=== PATIENT | male | born 1990 | race Caucasian/White ===

== ENCOUNTER 2017-11-23 01:35 | Observation (INO) ==
[2017-11-23] MEDS ORDERED: levETIRAcetam 1,000 MG in 0.9 % Sodium Chloride 100 ML IVPB ONE (01:58)
--- NOTE | 2017-11-23 02:02 | Emergency Department Note ---
Disposition Clinical Impression: Seizure, Cocaine use, Amphetamine abuse Disposition: Admitted As Inpatient Condition: Fair Time of Disposition: 04:04 Seizure HPI - General Chief Complaint: ED Seizure Stated Complaint: seizure Time Seen by Provider: 11/23/17 01:49 Source: EMS Mode of arrival: EMS Limitations: altered mental status Nursing Notes Reviewed: Yes Vital Signs Reviewed: Yes - History of Present Illness HPI Narrative: 27-year-old male patient for evaluation following a seizure. History provided via EMS. EMS states that the mother noted a seizure and called. EMS reports the patient did have a 10 second seizure. Patient was not immediately postictal but was sleepy. Patient does have evidence of a fall possibly related to a seizure earlier. Patient does not provide a clear history. EMS report the patient does have a Suboxone history is not taking it for the past 2 days. Patient denies having a seizure history. Patient reports mid abdominal pain but denies pain elsewhere. No stress breath no fevers. No chest pain. Patient denies alcohol or drugs. - Related Data Home Medications Medication Instructions Recorded Confirmed Buprenorphine HCl/Naloxone HCl 1 each SL BID 11/23/17 11/23/17 [Suboxone 8 mg-2 mg Sl Film] Gabapentin [Neurontin] 800 mg PO TID 11/23/17 11/23/17 Allergies Allergy/AdvReac Type Severity Reaction Status Date / Time ketorolac [From Toradol] Allergy Rash Verified 11/23/17 04:31 All systems ED: reviewed and negative except as stated. Constitutional: Reports: as per HPI. Denies: fever Eyes: Reports: as per HPI ENT ED: Reports: as per HPI Cardiovascular: Reports: as per HPI. Denies: chest pain Respiratory: Reports: as per HPI. Denies: cough, dyspnea Gastrointestinal: Reports: as per HPI, abdominal pain. Denies: nausea, vomiting Genitourinary: Reports: as per HPI Musculoskeletal: Reports: as per HPI Integumentary: Reports: as per HPI Neurological: Reports: as per HPI Psychiatric: Reports: as per HPI Endocrine: Reports: as per HPI Hematological/Lymphatic: Reports: as per HPI Allergic/Immunologic: Reports: as per HPI Past Medical History - Past Medical History Medical history: Reports: no medical history Surgical history: Reports: other Psychiatric history: Reports: anxiety - Social History Smoking Status: Current every day smoker Smokeless Tobacco Status: No Alcohol use: Reports: none Drug use: Reports: other Physical Exam - General Limitations: altered mental status General appearance: alert, in no apparent distress - Head Head exam: atraumatic, normocephalic, normal inspection - Eye Eye exam: Present: normal appearance, PERRL, EOMI, other (Periorbital ecchymosis ) - ENT ENT exam: normal exam, normal oropharynx, mucous membranes moist - Expanded ENT Exam Mouth exam: Present: laceration (Lateral tongue laceration.) - Neck Neck exam: Present: normal inspection, trachea midline - Chest Chest inspection: Present: normal inspection, symmetric chest wall rise - Respiratory Respiratory exam: Present: normal lung sounds bilaterally. Absent: respiratory distress - Cardiovascular Cardiovascular exam: Present: regular rate, normal rhythm - Abdominal Exam Abdominal exam: Present: soft, Non-Tender - Male exam: Present: other (No urinary incontinence) - Extremities Exam Extremities exam: Present: normal inspection. Absent: pedal edema - Back Exam Back exam: Present: normal inspection. Absent: tenderness - Neurological Exam Neurological exam: Present: alert, oriented X3, CN II-XII intact - Psychiatric Psychiatric exam: Present: normal affect, normal mood - Skin Skin exam: Present: warm, dry, intact, normal color Course Course Narrative: Patient seen and examined. Patient will get basic lab work including CBC and lipase. Patient also I's. Patient will get an EKG and head CT. Patient also get a urine drug screen. Seizure precautions in place. Patient does have evidence of seizure with lateral tongue biting as well as evidence of head trauma. Patient will be loaded with Keppra. - Reevaluation(s) Reevaluation #1: Patient continues to be resting. The patient's mother is now bedside. Confirms a history of the patient had been feeling well for the past couple days. The patient had initial seizure early this morning late last night where he fell. Mother did not directly witness a seizure. Mother witnessed a seizure following that event lasted approximately 2 minutes with generalized convulsions. Patient did have some confusion following that episode. EMS also noted is seizure on arrival and lasting approximately 10 seconds. No history of seizures in the past. Time: 03:32 Reevaluation #2: Patient continues to be sleeping. Time: 04:04 Vital Signs Temperature 97 F L 11/23/17 01:40 Pulse Rate 75 11/23/17 01:40 Respiratory Rate 16 11/23/17 01:40 Blood Pressure 104/70 11/23/17 01:40 O2 Sat by Pulse Oximetry 92 11/23/17 01:40 Temperature 98.1 F 11/23/17 05:20 Pulse Rate 61 11/23/17 05:20 Respiratory Rate 18 11/23/17 05:20 Blood Pressure 103/61 11/23/17 05:20 O2 Sat by Pulse Oximetry 95 11/23/17 05:20 Oxygen Delivery Oxygen Delivery Nasal Cannula Seizure - MDM Narrative Medical decision making narrative: 19-year-old male presents for evaluation following seizure-like activity. Patient had initial seizure witnessed by family. Not able to accurately describe the seizure at that time. Mother did notice subsequent seizure [place] proximally 2 minutes there is generalized convulsions. With some post ictal confusion. No history of seizures in the past. Patient does have a history of Suboxone use and has not been taking Suboxone for the past 2 days. Mother denies history of drug use however the patient's urine drug screen does show amphetamines as well as cocaine use. Patient has subsequent seizure witnessed by EMS last proximally 10 seconds. No abortives or given any of the seizure activity. Patient had basic lab work including a head CT and chest x-ray. Basic labs show leukocytosis likely stress-induced following a seizure. Patient does have lateral tongue biting system with a seizure. Patient did not have any urinary incontinence. Etiology of the seizure is unknown at this point however substance abuse and withdrawal highly suspected. Patient is alert but not back to his baseline. Patient was loaded with Keppra. Given the fact that the patient had recurrent seizures in a 24-hour period the patient would benefit from inpatient admission observation to ensure that he returns to his normal mental status. Low suspicion for [employer] meningitis or encephalitis. Patient exhibits no meningeal signs or symptoms. - Lab Data Lab results reviewed: Yes I reviewed the patient's lab results. Result diagrams: 11/23/17 01:43 11/23/17 01:43 Lab Results 11/23/17 11/23/17 11/23/17 Range/Units 01:43 01:43 01:43 WBC 22.2 H (4.3-11.1) K/mcL RBC 5.28 (4.19-5.50) M/mcL Hgb 15.3 (12.9-16.9) g/dL Hct 43.8 (37.5-50.1) % MCV 83.0 (83.0-100.0) fL MCH 29.0 (28.0-33.3) pg MCHC 34.9 (31.6-35.5) g/dL RDW 12.2 (11.5-14.5) % Plt Count 371 (140-400) K/mcL MPV 10.3 (9.4-12.4) fL Immature Gran % 0.6 (0-4) % Seg Neutrophils % 89.6 % Lymphocytes % 4.8 % Monocytes % 4.7 % Eosinophils % 0.1 % Basophils % 0.2 % Neutrophils # 19.9 H (1.6-8.9) K/mcL Lymphocytes # 1.1 (0.6-4.6) K/mcL Monocytes # 1.0 (0.0-1.3) K/mcL Eosinophils # 0.0 (0.0-0.6) K/mcL Basophils # 0.1 (0.0-0.2) K/mcL Sodium 138 (136-145) mEq/L Potassium 3.5 (3.5-5.1) mEq/L Chloride 101 (98-107) mEq/L Carbon Dioxide 21 L (23-29) mEq/L BUN 12 (6-20) mg/dL Creatinine 1.15 (0.70-1.30) mg/dL Est GFR ( Amer) > 60 (> 60) Est GFR (Non-Af Amer) > 60 (> 60) BUN/Creatinine Ratio 10 (6-26) Glucose 149 H (70-105) mg/dL Calculated Osmolality 289 (280-300) Calcium 9.8 (8.6-10.3) mg/dL Total Bilirubin 0.4 (0.3-1.0) mg/dL AST 21 (13-39) Units/L ALT 31 (7-52) Units/L Alkaline Phosphatase 130 H (34-104) Units/L Serum Total Protein 6.7 (6.4-8.9) g/dL Albumin 4.4 (3.5-5.7) g/dL Globulin 2.3 L (2.4-3.5) g/dL Albumin/Globulin Ratio 1.9 (1.1-2.2) Lipase 6 L (11-82) Units/L Urine Color (Yellow) Urine Clarity (Clear) Urine pH (5.0-8.0) pH Units Ur Specific [place] (1.010-1.025) Urine Protein (Neg-Trace) mg/dL Urine Glucose (UA) (Normal) mg/dL Urine Ketones (Negative) mg/dL Urine Blood (Negative) Urine Nitrite (Negative) Urine Bilirubin (Negative) Urine Urobilinogen (Normal) mg/dL Ur Leukocyte Esterase (Negative) Urine Opiates Screen (Hgrqwi=584) ng/mL Ur Barbiturates Screen (Drshcn=071) ng/mL Ur Phencyclidine Scrn (Cutoff=25) ng/mL Ur Amphetamines Screen (Yzjavj=8700) ng/mL U Benzodiazepines Scrn (Opdeig=099) ng/mL Urine Cocaine Screen (Cutoff= 300) ng/mL U Marijuana (THC) Screen (Cutoff = 50) ng/mL Ethyl Alcohol < 10 (0-10) mg/dL 11/23/17 11/23/17 Range/Units 02:53 02:54 WBC (4.3-11.1) K/mcL RBC (4.19-5.50) M/mcL Hgb (12.9-16.9) g/dL Hct (37.5-50.1) % MCV (83.0-100.0) fL MCH (28.0-33.3) pg MCHC (31.6-35.5) g/dL RDW (11.5-14.5) % Plt Count (140-400) K/mcL MPV (9.4-12.4) fL Immature Gran % (0-4) % Seg Neutrophils % % Lymphocytes % % Monocytes % % Eosinophils % % Basophils % % Neutrophils # (1.6-8.9) K/mcL Lymphocytes # (0.6-4.6) K/mcL Monocytes # (0.0-1.3) K/mcL Eosinophils # (0.0-0.6) K/mcL Basophils # (0.0-0.2) K/mcL Sodium (136-145) mEq/L Potassium (3.5-5.1) mEq/L Chloride (98-107) mEq/L Carbon Dioxide (23-29) mEq/L BUN (6-20) mg/dL Creatinine (0.70-1.30) mg/dL Est GFR ( Amer) (> 60) Est GFR (Non-Af Amer) (> 60) BUN/Creatinine Ratio (6-26) Glucose (70-105) mg/dL Calculated Osmolality (280-300) Calcium (8.6-10.3) mg/dL Total Bilirubin (0.3-1.0) mg/dL AST (13-39) Units/L ALT (7-52) Units/L Alkaline Phosphatase (34-104) Units/L Serum Total Protein (6.4-8.9) g/dL Albumin (3.5-5.7) g/dL Globulin (2.4-3.5) g/dL Albumin/Globulin Ratio (1.1-2.2) Lipase (11-82) Units/L Urine Color Yellow (Yellow) Urine Clarity Clear (Clear) Urine pH 5.0 (5.0-8.0) pH Units Ur Specific [place] 1.023 (1.010-1.025) Urine Protein Negative (Neg-Trace) mg/dL Urine Glucose (UA) Normal (Normal) mg/dL Urine Ketones Negative (Negative) mg/dL Urine Blood Negative (Negative) Urine Nitrite Negative (Negative) Urine Bilirubin Negative (Negative) Urine Urobilinogen Normal (Normal) mg/dL Ur Leukocyte Esterase Negative (Negative) Urine Opiates Screen Negative (Qmmihg=488) ng/mL Ur Barbiturates Screen Negative (Enapez=874) ng/mL Ur Phencyclidine Scrn Negative (Cutoff=25) ng/mL Ur Amphetamines Screen Positive H (Teluww=0381) ng/mL U Benzodiazepines Scrn Negative (Tzouoo=393) ng/mL Urine Cocaine Screen Positive H (Cutoff= 300) ng/mL U Marijuana (THC) Screen Negative (Cutoff = 50) ng/mL Ethyl Alcohol (0-10) mg/dL - Radiology Data Radiology results reviewed: Yes I reviewed the patient's radiology results. Head CT 11/23/17 02:00 IMPRESSION: No acute intracranial abnormality. D/ / Ed Talavera MD / Ed Talavera MD Interpreting Provider: Ed Talavera MD Chest X-Ray 11/23/17 03:34 IMPRESSION: Mild patchy bibasilar airspace disease may represent atelectasis or pneumonia, possibly from aspiration. Clinical correlation is recommended. D/ / Chavez Scott MD / Chavez Scott MD Interpreting Provider: Chavez Scott MD - EKG Data EKG attestation: Yes I reviewed and interpreted this EKG. EKG shows normal: sinus rhythm Rate: normal Rhythm: NSR [place]/QRS: normal T wave inversions noted in: aVR Interpretation: no acute changes S.B.A.R. - S.B.A.Nilson Situation: Demographics Background: Presenting Complaint Assessment: Vital Signs, Course and respsone to treatment, Patient/Family Expectation Recommendation: Barrier(s) to disposition, Recommendation based on pending studies, treatments, or consults S.B.A.RRocío Report Given to: Dr. Alena Urbina Repor Time: 04:35 Attestation Statement - Attestation Attestation: I, Cody Mckoy MD, personally evaluated this patient and discussed their management with the resident physician. I reviewed the resident's note and agree with the documented findings, medical decision making, and plan of care. 27-year-old male presents to the emergency department after having seizure activity at home this evening. No prior history of seizures. Mother reports that he was in bed and she heard him fall out of bed and found him in the floor with jerking all over. He hit his head when he fell and has some right periorbital ecchymosis. She states he woke up and she abdomen back up into the bed and then he had another seizure which lasted a few minutes. She called EMS. EMS reports that the patient had a third episode of seizure activity after they had loaded him into the ambulance. On arrival here the patient is postictal. No urinary incontinence. His only complaint is abdominal pain. Mother reports that he did vomit at home before the seizure. On examination patient is a well-developed well-nourished male. Patient is postictal and was very drowsy and responds to verbal stimuli but is nonverbal on arrival. There is no cyanosis or diaphoresis. He has some right periorbital ecchymosis and ecchymosis and mild swelling to the bridge of the nose. Neck is supple with no apparent tenderness and no meningismus. Chest is nontender to palpation. Breath sounds clear and equal bilaterally. Heart regular and tachycardic. Abdomen is soft with normal bowel sounds and no apparent tenderness on palpation. No guarding or rebound tenderness. No tympany or distention. Patient moving all 4 extremities. Labs reviewed. Head CT shows no acute intracranial abnormality. Chest x-ray shows mild patchy bibasilar airspace disease may represent atelectasis or pneumonia, possibly from aspiration. The hospitalist, Dr. Carvajal, was consulted and accepted admission of the patient.
[2017-11-23 02:06] LABS: Basophils # 0.1 K/mcL (0.0-0.2); Basophils % 0.2 %; Eosinophils % 0.1 %; Hematocrit 43.8 % (37.5-50.1); Hemoglobin 15.3 g/dL (12.9-16.9); Immature Granulocytes % 0.6 % (0-4); Lymphocytes # 1.1 K/mcL (0.6-4.6); Lymphocytes % 4.8 %; Mean Corpuscular HGB Conc 34.9 g/dL (31.6-35.5); Mean Platelet Volume 10.3 fL (9.4-12.4); Monocytes % 4.7 %; Neutrophils # 19.9 K/mcL (1.6-8.9); Platelet Count 371 K/mcL (140-400); Red Blood Count 5.28 M/mcL (4.19-5.50); Red Cell Distribution Width 12.2 % (11.5-14.5); Segmented Neutrophils % 89.6 %
[2017-11-23 02:15] LABS: Alanine Aminotransferase 31 Units/L (7-52); Albumin 4.4 g/dL (3.5-5.7); Albumin/Globulin Ratio 1.9 (1.1-2.2); Alkaline Phosphatase 130 Units/L (34-104); Aspartate Amino Transferase 21 Units/L (13-39); BUN/Creatinine Ratio 10 (6-26); Bilirubin,Total 0.4 mg/dL (0.3-1.0); Blood Urea Nitrogen 12 mg/dL (6-20); Calcium 9.8 mg/dL (8.6-10.3); Carbon Dioxide 21 mEq/L (23-29); Chloride 101 mEq/L (98-107); Globulin 2.3 g/dL (2.4-3.5); Glucose 149 mg/dL (70-105); Lipase 6 Units/L (11-82); Osmolality,Calculated 289 (280-300); Potassium 3.5 mEq/L (3.5-5.1); Sodium 138 mEq/L (136-145); Total Protein 6.7 g/dL (6.4-8.9); eGFR For African Americans > 60 (> 60); eGFR For Non-African Americans > 60 (> 60)
[2017-11-23 03:09] LABS: Bilirubin,Urine Negative (Negative); Blood,Urine Negative (Negative); Clarity,Urine Clear (Clear); Color,Urine Yellow (Yellow); Glucose,Urine (UA) Normal (Normal); Ketones,Urine Negative (Negative); Leukocyte Esterase,Urine Negative (Negative); Nitrite,Urine Negative (Negative); Protein,Urine Negative (Neg-Trace); Specific Gravity,Urine 1.023 (1.010-1.025); Urobilinogen,Urine Normal (Normal)
[2017-11-23 03:16] LABS: Amphetamine Screen,Urine Positive ng/mL (Cutoff=1000); Barbiturate Screen,Urine Negative ng/mL (Cutoff=200); Benzodiazepines Screen,Urine Negative ng/mL (Cutoff=200); Cannabinoid Screen,Urine Negative ng/mL (Cutoff = 50); Cocaine Screen,Urine Positive ng/mL (Cutoff= 300); Opiate Screen,Urine Negative ng/mL (Cutoff=300); Phencyclidine Screen,Urine Negative ng/mL (Cutoff=25)
[2017-11-23] MEDS ORDERED: Naloxone 0.4 MG/ML INJ IVP PRN (08:32)
[2017-11-23] MEDS ORDERED: Acetaminophen 325 MG TABLET PO PRN (08:32)
[2017-11-23] MEDS ORDERED: Ondansetron 4 MG/2 ML VIAL IVP PRN (08:32)
[2017-11-23] MEDS ORDERED: 0.9 % Sodium Chloride w KCl 20 MEQ/1,000 ML MLS IVC SCH (08:45)
--- NOTE | 2017-11-23 09:38 | Internal Med History&Physical ---
Date of Encounter: 11/23/17 Time of Encounter: 07:50 Assessment and Plan (1) Seizure Current visit: Yes Status: Acute 1. I suspect this is a withdrawal seizure from Suboxone withdrawal (missed 4 doses). 2. Will resume Suboxone per home dosing -- [facility] reprot verifies last Rx fill was 11/15/17 for 14 doses (7 days). 3. Continue Neurontin. 4. Will hold off further anti-epileptics unless advised by Neurology. 5. Will order EEG. 6. Consult neurology for further guidance -- discussed with Dr. Bell. 7. Do not suspect meningitis clinically and do not feel LP is warranted at this time. 8. Seizure precautions. (2) Atelectasis of both lungs Current visit: Yes Status: Acute 1. I do not suspect pneumonia. 2. Will repeat CXR tomorrow and repeat CBC. If patient develops symptoms and/ or fever, will treat for possible aspiration pneumonia. However, clinically, he does not have pneumonia and/or symptoms presently. (3) Opiate addiction Current visit: Yes Status: Chronic 1. Resume home dose of Suboxone as prescribed. Qualifiers: Substance use status: in withdrawal Qualified Code(s): F11.23 - Opioid dependence with withdrawal (4) DVT prophylaxis Current visit: Yes Status: Acute 1. Heparin SQ. Internal Medicine - H&P: HPI Chief complaint: seizure Admitted From: Emergency Dept Plans for Post Hospital Care: Home History of present illness: Mr. Morrell is a 27 year old male who presents to the ER today with complaints of seizure as witnessed by his mother. Patient was brought in by EMS who witnessed patient having a 10 second seizure. EMS also reported that the patient's mother witnessed a seizure, thus prompting the call to EMS. Workup in the ER was pertinent for positive urine drug screen for cocaine and amphetamines. He had a negative CT of the head and was loaded with Keppra prior to being admitted to hospitalist service. Upon my assessment of the patient, he is somnolent but easily arousable. He is able to recite most of his past history. He does not recall having a seizure. There are no family members present in the ER. Regarding his past history, he confirms that he takes Suboxone for prior history of opiate drug abuse. He confirms that he ran out of his medication 2 days ago and has been without it for 4 doses now. I questioned him about his urine drug screen, and he denies any recent use of cocaine or amphetamines. However, he did confirm that he has used cocaine in recent months. He denies any chest pain, fevers, shortness of breath, headache, neck pain, back pain, vomiting, diarrhea, chills, or night sweats. He has never had seizures before, and I highly suspect he had a withdrawal seizure from his missed Suboxone doses. I did perform an [facility] report on his prior prescriptions and note that he last filled an Rx for Suboxone on 11/15/17 for 14 doses (7 days). Past Med Surg Social Fam HX - Past Medical History Attestation: Yes The following information was validated with the patient. Source: patient, old records reviewed Medical history: other (Opiate abuse -- currently on Suboxone treatment) Psychiatric history: anxiety - Past Surgical History Surgical History: no surgical history, other - Social History Smoking Status: Current every day smoker Smokeless Tobacco Status: No Alcohol use: none Drug use: cocaine, opiates, methamphetamine, other (currently prescribed Suboxone) Current living situation: Home, With Family Activity Level: Independent ambulation Recent Out of Country Travel Within the Last 8 Weeks: No - Family History Mother Living Status: Still Living Hx Family Neurologic Disorders: No Father Living Status: Still Living Hx Family Neurologic Disorders: No Internal Medicine - H&P: Meds Buprenorphine HCl/Naloxone HCl [Suboxone 8 mg-2 mg Sl Film] 1 each SL BID [History] Gabapentin [Neurontin] 800 mg PO TID 11/23/17 [History] hydrOXYzine pamoate [HydrOXYzine Pamoate] 25 mg PO TID 11/23/17 [History] 3 Allergy/AdvReac Type Severity Reaction Status Date / Time ketorolac [From Toradol] Allergy Rash Verified 11/23/17 04:31 - Constitutional Constitutional: no chills, no fever(s), no night sweats, no weakness, no weight gain, no weight loss - EENT Eyes: no blurry vision, no change in vision Ears: no ear pain, no tinnitus Nose, mouth and throat: no nasal congestion, no post-nasal drip, no sinus pain, no sinus pressure, no sore throat - Cardiovascular Cardiovascular ROS IM: syncope (seizure), no chest pain, no diaphoresis, no dyspnea, no dyspnea on exertion, no edema, no lightheadedness, no palpitations, no paroxysmal nocturnal dyspnea - Respiratory Respiratory: no cough, no dyspnea, no hemoptysis, no dyspnea on exertion, no wheezing, no chest congestion, no excessive phlegm production, no change in phlegm color - Gastrointestinal Gastrointestinal: no abdominal pain, no diarrhea, no hematemesis, no hematochezia, no melena, no nausea, no vomiting - Genitourinary Genitourinary ROS male: no dysuria, no flank pain, no hematuria - Musculoskeletal Musculoskeletal ROS IM: no arthralgias, no atrophy, no back pain - Integumentary Integumentary IM: no rash, no jaundice - Neurological Neurological ROS: convulsions, no dizziness, no focal weakness, no frequent falls, no headache(s), no numbness, no paresthesias, no weakness - Psychiatric Psychiatric: no anxiety, no confusion - Endocrine Endocrine IM: no polydipsia, no polyuria - Hematologic/Lymphatic Hematologic/Lymphatic: no easy bruising, no lymphadenopathy - Allergic/Immunologic Allergic/Immunologic: no wheezing, no GI upset with certain foods - Constitutional Vitals: Temp Pulse Resp BP Pulse Ox 98.1 F 61 18 103/61 95 11/23/17 05:20 11/23/17 05:20 11/23/17 05:20 11/23/17 05:20 11/23/17 05:20 General appearance: Present: cooperative, A&O X 3, pleasant, no acute distress, answers questions appropriately Exam: somnolent but easily arousable and answers questions appropriately and cooperatively - Head Head exam: Present: normocephalic. Absent: atraumatic, normal inspection - Expanded Head Exam Head exam expanded: Present: contusion (right forehead/jann-orbital area). Absent: abrasion, general tenderness - Eye Eye exam: Present: EOMI, normal appearance, PERRL. Absent: scleral icterus Pupils: Present: normal accommodation - ENT ENT exam: Present: mucous membranes dry, normal exam Additional comments: poor dentition -- especially upper teeth - Neck Neck exam general surgery: Present: full ROM, supple. Absent: lymphadenopathy, tenderness, nuchal rigidity, thyromegaly - Respiratory Respiratory exam: Present: CTAB. Absent: chest wall tenderness, rales, respiratory distress, rhonchi, wheezes - Cardiovascular Cardiovascular exam: Present: RRR, +S1, +S2. Absent: diastolic murmur, systolic murmur - GI/Abdominal GI/Abdominal exam: Present: normal bowel sounds, soft. Absent: guarding, hepatomegaly, rebound, splenomegaly, tenderness - Extremities Exam Extremities exam: Present: normal capillary refill, warm, radial pulses palpable and symmetrical. Absent: calf tenderness, cyanotic, full ROM, joint swelling, tenderness - Back Exam Back exam: Absent: CVA tenderness (L), CVA tenderness (R), paraspinal tenderness - Neurological Exam Neurological exam: Present: alert, CN II-XII intact, oriented X3, no focal deficits, strengths equal and symetr throughout Additional comments: no spinal tenderness; no nuchal rigidity; negative Kernig sign; negative Brudzinski sign - Psychiatric Psychiatric exam: Present: normal affect, normal mood - Skin Skin exam: Present: dry, warm. Absent: rash Internal Med - H&P Results - Labs CBC & Chem 7: 11/23/17 01:43 11/23/17 01:43 - Diagnostic Studies Chest x-ray Status: image reviewed by me (negative in my opinion; radiology read as atelecasis versus possible aspiration)
[2017-11-23] MEDS: Gabapentin 400 MG CAPSULE PO SCH ×2 (12:38→14:18)
--- NOTE | 2017-11-23 15:15 | Neurology - Consult Note ---
<Genna Philip - Last Filed: 11/23/17 15:53> Date of Encounter: 11/23/17 Time of Encounter: 15:12 Assessment and Plan (1) Seizure Current Visit: Yes Status: Acute seizure activity witnessed by his mother and EMS patient currently on suboxone, and ran out of his medication and missed four doses. but when he was asked about this he was confused. head CT: no acute abnormality UDS positive for amphetamines and cocaine Plan: EEG pending continue suboxone and neurontin per home dosing seizure precautions likely withdrawl seizure, so do not need any anti-epileptics. History of Present Illness Chief complaint: seizure HPI: Mr. Morrell is a 27 year old male with PMHx of opiate abuse (on suboxone), restless leg syndrome (on gabapentin), anxiety. Patient arrived to ED today by EMS with chief complaint of seizure activity witnessed by his mother. There was also seizure activity that was witnessed by EMS. The seizures lasted about 10 seconds. Patient was supposedly on suboxone and ran out of his medication 2 days ago and missed four doses. However, when he was asked about this, he was confused and stated that he doesn't think he ran out. patient denies nausea, vomiting, diarrhea, fever, chills, chest pain, shortness of breath. he is somnolent and tired but denies any further complaints today. Past Med Surg Social Fam HX - Past Medical History Medical history: other (Opiate abuse -- currently on Suboxone treatment) Psychiatric history: anxiety - Past Surgical History Surgical History: no surgical history, other - Social History Smoking Status: Current every day smoker Smokeless Tobacco Status: No Alcohol use: none Drug use: cocaine, opiates, methamphetamine, other (currently prescribed Suboxone) - Family History Mother Living Status: Still Living Hx Family Neurologic Disorders: No Father Living Status: Still Living Hx Family Neurologic Disorders: No Medications and Allergies Buprenorphine HCl/Naloxone HCl [Suboxone 8 mg-2 mg Sl Film] 1 each SL BID [History] Gabapentin [Neurontin] 800 mg PO TID 11/23/17 [History] hydrOXYzine pamoate [HydrOXYzine Pamoate] 25 mg PO TID 11/23/17 [History] 3 Allergy/AdvReac Type Severity Reaction Status Date / Time ketorolac [From Toradol] Allergy Rash Verified 11/23/17 04:31 All Systems: A 10-system review of systems was performed and is negative for pertinent findings except as documented above in the HPI. - Constitutional Constitutional ROS IM: as per HPI Physical Examination - Vital Signs Vital Signs: Initial Vital Signs Temp Pulse Resp BP Pulse Ox 97 F L 75 16 104/70 92 11/23/17 01:40 11/23/17 01:40 11/23/17 01:40 11/23/17 01:40 11/23/17 01:40 - Constitutional General appearance: comfortable - Neurologic Sensorimotor examination: intact Detailed motor examination: grossly full strength in all extremities Motor examination - right side: 5/5: deltoids, biceps, wrist flexion, wrist extension, city assessor, quadriceps Motor examination - left side: 5/5: deltoids, biceps, wrist flexion, wrist extension, hip flexors, tibialis Anterior Detailed sensory examination: intact Reflexes: Brachioradialis: 2+, Patella: 2+, Achilles: 2+ Mental Status Examination: awake, alert, oriented to person, oriented to place, oriented to time, follows commands appropriately, no aphasia, lethargic Cranial nerve examination: PERRL, visual bryan intact Results - Laboratory Findings CBC and BMP: 11/23/17 01:43 11/23/17 01:43 Abnormal lab findings: Abnormal lab results WBC 22.2 K/mcL (4.3-11.1) H 11/23/17 01:43 Neutrophils # 19.9 K/mcL (1.6-8.9) H 11/23/17 01:43 Carbon Dioxide 21 mEq/L (23-29) L 11/23/17 01:43 Glucose 149 mg/dL (70-105) H 11/23/17 01:43 POC Glucose 109 (58-89) H 11/23/17 12:01 Alkaline Phosphatase 130 Units/L (34-104) H 11/23/17 01:43 Globulin 2.3 g/dL (2.4-3.5) L 11/23/17 01:43 Lipase 6 Units/L (11-82) L 11/23/17 01:43 Ur Amphetamines Screen Positive ng/mL (Qvroir=2636) H 11/23/17 02:54 Urine Cocaine Screen Positive ng/mL (Cutoff= 300) H 11/23/17 02:54 Consult Discharge Plan - Plan Referrals: NONE,PCP [Primary Care Provider] - <Guera Montiel I - Last Filed: 11/23/17 16:24> Date of Encounter: 11/23/17 Assessment and Plan (1) Seizure Current Visit: Yes Status: Acute Patient seen and examined agreed with the resident history and documentation. No focal deficit on neurological examination imaging studies has been negative urine tox was positive agent was on Suboxone for years had this spell with the concern of seizure in current context with positive drug screening as well as being on Suboxone possible patient could have seizure due to interaction/ withdrawal effect from any of those illicit drugs Would not recommending starting him on any new's anti-seizure medication unless there is any Abnormality on EEG. Patient should remain on seizure precautions he is also on gabapentin which is another antiepileptic medication suggested to continue on it GUERA MONTIEL MD History of Present Illness HPI: Mr. Morrell is a 27 year old male All Systems: A 10-system review of systems was performed and is negative for pertinent findings except as documented above in the HPI. Physical Examination - Vital Signs Vital Signs: Initial Vital Signs Temp Pulse Resp BP Pulse Ox 97 F L 75 16 104/70 92 11/23/17 01:40 11/23/17 01:40 11/23/17 01:40 11/23/17 01:40 11/23/17 01:40 Results - Laboratory Findings CBC and BMP: 11/23/17 01:43 11/23/17 01:43 Abnormal lab findings: Abnormal lab results WBC 22.2 K/mcL (4.3-11.1) H 11/23/17 01:43 Neutrophils # 19.9 K/mcL (1.6-8.9) H 11/23/17 01:43 Carbon Dioxide 21 mEq/L (23-29) L 11/23/17 01:43 Glucose 149 mg/dL (70-105) H 11/23/17 01:43 POC Glucose 109 (58-89) H 11/23/17 12:01 Alkaline Phosphatase 130 Units/L (34-104) H 11/23/17 01:43 Globulin 2.3 g/dL (2.4-3.5) L 11/23/17 01:43 Lipase 6 Units/L (11-82) L 11/23/17 01:43 Ur Amphetamines Screen Positive ng/mL (Thhhae=5194) H 11/23/17 02:54 Urine Cocaine Screen Positive ng/mL (Cutoff= 300) H 11/23/17 02:54
[2017-11-23 15:37] VITALS: BP 116/70
--- NOTE | 2017-11-23 16:47 | EEG/EMG/Oth Biometrics Report ---
EEG Procedure Report Date of procedure: 11/23/17 EEG Procedure: Routine EEG Procedure Note: Patient with new onset seizure also on Suboxone and multiple illicit drug use positive urine toxicity screening Description: This is a multichannel digital EEG recording using the international 10-20 placement system. The resting record is fairly well organized and symmetric. A dominant posterior rhythm is seen. It consists of a 8 hertz 20-70 microvolt alpha rhythm. This attenuates with eye opening. During drowsiness, there is mild attenuation and slowing of the background rhythm. Stage II sleep was not achieved. Hyperventilation was not performed. Photic stimulation did not significantly alter the background rhythm. There was noted the presence of a rhythmic sharp discharge in the frontocentral region. This was preceded by some poorly-formed sharpish discharges. This episode lasted for about 2to 3 seconds. Postepisode, there was some attenuation but not much slowing. No clinical seizure activity was noted by the medical delivery technician. IMPRESSION: This is an abnormal EEG recording because of the presence of rhythmic epileptiform discharges. could be the source of patient seizures Clinical correlation is suggested. If indicated, repeat EEG and/or 24-hour ambulatory EEG monitoring might be useful in the future.
--- NOTE | 2017-11-23 16:49 | Event Note ---
Date of Encounter: 11/23/17 Time of Encounter: 16:49 Patient who was admitted with seizure type of activity EEG shows, potential for seizure activity with spike and wave without any continuous seizure activity Recommend seizure medication, we will start him on Keppra 500 mg IV twice a day Patient should remain on seizure precautions
[2017-11-23] MEDS ORDERED: *HR* Heparin 5,000 UNIT/ML VIAL SQ SCH (18:00)
[2017-11-23] MEDS ORDERED: (Buprenorphine Hcl/Naloxone Hcl [Suboxone 8 Mg-2 Mg SL SL SCH (18:00)
--- NOTE | 2017-11-23 18:21 | Event Note ---
Date of Encounter: 11/23/17 Time of Encounter: 18:20 Called by RN stating patient was signing out AMA (against medical advice). He left the hospital and signed out before I could come talk to him.
--- NOTE | 2017-11-24 18:44 | Electrocardiograph Report ---
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
== END 2017-11-23 18:16 | disposition left against medical advice (07) ==
LOC: EMEROO 01:35 → 3BNU 01:35
PROVIDERS: ADMIT Internal Medicine; ATTEND Internal Medicine

== ENCOUNTER 2018-09-14 10:06 | Observation (INO) ==
[2018-09-14] MEDS ORDERED: 0.9 % Sodium Chloride 1,000 ML IVC ONE (10:22)
--- NOTE | 2018-09-14 10:35 | Emergency Department Note ---
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 Description of Episode: loss of consciousness, tonic-clonic movement, other (fell off porch when had seizure) -: second(s), minutes(s) Witnessed: yes - by bystander Associated trauma secondary to event: Yes Seizure History: none Place: home Possible Precipitating Event: drug use Associated symptoms: Denies: chest pain, confusion, cough, diaphoresis, fever/chills, loss of appetite, malaise, rash, shortness of breath, syncope, weakness Pain Severity: mild Pain Description: burning Treatments prior to arrival: none - Related Data Home Medications Medication Instructions Recorded Confirmed RX: Gabapentin [Neurontin] 800 mg PO QID 11/23/17 09/14/18 RX: Methadone Oral Concentrate 110 mg PO DAILY 09/14/18 [Methadone] Previous Rx's Medication Instructions Recorded Amoxicillin/Clavulanate [Augmentin] 875 mg PO BIDWM 5 Days #10 tablet 09/17/18 RX: Nicotine Patch [Nicoderm] 21 mg TD DAILY 30 Days #30 09/17/18 patch.[email or web address] Allergies Allergy/AdvReac Type Severity Reaction Status Date / Time ketorolac [From Toradol] Allergy Rash Verified 09/17/18 14:47 All systems ED: reviewed and negative except as stated. Review of Systems: As Per HPI Constitutional: Denies: fever, chills, weakness Eyes: Denies: eye pain, eye discharge, vision change ENT ED: Denies: throat pain, hearing loss, epistaxis, dysphagia Cardiovascular: Denies: chest pain, palpitations, dyspnea on exertion, orthopnea Respiratory: Denies: cough, dyspnea, wheezes Gastrointestinal: Denies: abdominal pain, nausea, vomiting, diarrhea Genitourinary: Denies: dysuria, hematuria Musculoskeletal: Denies: back pain, neck pain, joint swelling, arthralgia, myalgia Integumentary: Reports: as per HPI, abrasion Neurological: Denies: headache, weakness, numbness, paresthesias, confusion, vertigo Endocrine: Reports: fatigue Hematological/Lymphatic: Denies: easy bleeding, easy bruising Past Medical History - Past Medical History Attestation: Yes The following information was validated with the patient. Source: patient Medical history: Reports: no medical history Surgical history: Reports: no surgical history, other Psychiatric history: Reports: anxiety - Social History Smoking Status: Current every day smoker Smokeless Tobacco Status: No Alcohol use: Reports: none Drug use: Reports: cocaine, opiates, methamphetamine, other Physical Exam - General Limitations: no limitations General appearance: alert, in no apparent distress, appears intoxicated - Head Head exam: normocephalic - Expanded Head Exam Head exam physicial: Present: abrasion, contusion. Absent: raccoon eyes, Singer's sign, tenderness of temporal artery, CSF rhinorrhea, CSF otorrhea 1 - superficial abrasions, No FB, no active bleeding. No crepitus or bony deformity. 2 - superficial abrasions without active bleeding or FB. - Eye Eye exam: Present: PERRL, EOMI, miosis. Absent: scleral icterus, conjunctival injection, periorbital swelling, periorbital tenderness - ENT ENT exam: mucous membranes dry - Neck Neck exam: Present: full ROM, trachea midline, other (superficial abrasion left side). Absent: tenderness, meningismus - Expanded Neck Exam Neck exam focused ED: Present: paraspinal tenderness. Absent: midline tenderness, tenderness (other), tracheal deviation, anterior neck swelling, thyroid enlargement, JVD - Chest Chest inspection: Present: normal inspection - Respiratory Respiratory exam: Present: normal lung sounds bilaterally. Absent: respiratory distress - Cardiovascular Cardiovascular exam: Present: regular rate, normal rhythm - Extremities Exam Extremities exam: Present: tenderness, normal capillary refill. Absent: calf tenderness - Expanded Lower Extremity Exam Hip/Pelvis exam: Present: full ROM Knee exam: Present: full ROM Ankle exam: Present: full ROM. Absent: tenderness Foot/toe exam: Present: full ROM, tenderness, swelling, erythema. Absent: deformity, crepitus 1 - ulceration 2 - erythema, tenderness, edema Neurovascular/Tendon exam: Present: normal capillary refill, normal fine/light touch. Absent: pulse deficit, motor deficit, sensory deficit, tendon deficit, extremity cold to touch, pallor, foot drop, significant pain with passive ROM of distal joint Gait: observed and normal - Back Exam Back exam: Present: normal inspection - Neurological Exam Neurological exam: Present: alert, oriented X3, CN II-XII intact, normal gait - Psychiatric Psychiatric exam: Present: normal affect, normal mood - Skin Skin exam: Present: warm, dry, intact, normal color, erythema (left forearm 4cm indurated area - volar side. Right dorsal foot - cellulitis with an ulceration) Course Course Narrative: Patient with Hx of IVDA, also on Methadone from a detox center, presents by squad for eval of injuries from a fall. A neighbor told the patient's mom that the patient appeared to have a seizure and then fell off of the porch. Patient states that he is not sure what caused him to fall off of the porch. He injected heroine last night and took methadone this AM. He has a significant cellulitis on dorsal aspect of right foot and an ulcer from injecting drugs recently. Labs, meds, CT's and xray ordered. Patient's head CT, face CT and neck CT read by radiologist as no acute abnormality. No signs of osteo on foot xray. ABX started. Patient admitted. Vital Signs Temperature 98.7 F 09/14/18 10:23 Pulse Rate 88 09/14/18 10:23 Respiratory Rate 16 09/14/18 10:23 Blood Pressure 125/67 09/14/18 10:23 O2 Sat by Pulse Oximetry 94 09/14/18 10:23 Temperature 98.4 F 09/17/18 06:55 Pulse Rate 88 09/17/18 06:55 Respiratory Rate 14 09/17/18 06:55 Blood Pressure 147/72 09/17/18 06:55 O2 Sat by Pulse Oximetry 97 09/17/18 06:55 Oxygen Delivery Oxygen Delivery Room Air Seizure - Medical Records Medical records reviewed: Yes I reviewed the patient's medical records. - Lab Data Lab results reviewed: Yes I reviewed the patient's lab results. Lab results narrative: Laboratory Last Values WBC 9.9 K/mcL (4.3-11.1) 09/15/18 03:18 RBC 4.42 M/mcL (4.19-5.50) 09/15/18 03:18 Hgb 12.6 g/dL (12.9-16.9) L 09/15/18 03:18 Hct 38.0 % (37.5-50.1) 09/15/18 03:18 MCV 86.0 fL (83.0-100.0) 09/15/18 03:18 MCH 28.5 pg (28.0-33.3) 09/15/18 03:18 MCHC 33.2 g/dL (31.6-35.5) 09/15/18 03:18 RDW 12.6 % (11.5-14.5) 09/15/18 03:18 Plt Count 295 K/mcL (140-400) 09/15/18 03:18 MPV 10.4 fL (9.4-12.4) 09/15/18 03:18 Immature Gran % 0.4 % (0-4) 09/15/18 03:18 Seg Neutrophils % 72.8 % 09/15/18 03:18 Lymphocytes % 16.4 % 09/15/18 03:18 Monocytes % 7.7 % 09/15/18 03:18 Eosinophils % 2.4 % 09/15/18 03:18 Basophils % 0.3 % 09/15/18 03:18 Neutrophils # 7.2 K/mcL (1.6-8.9) 09/15/18 03:18 Lymphocytes # 1.6 K/mcL (0.6-4.6) 09/15/18 03:18 Monocytes # 0.8 K/mcL (0.0-1.3) 09/15/18 03:18 Eosinophils # 0.2 K/mcL (0.0-0.6) 09/15/18 03:18 Basophils # 0.0 K/mcL (0.0-0.2) 09/15/18 03:18 ESR 53 mm/hr (0-10) H 09/14/18 10:35 Sodium 140 mEq/L (136-145) 09/15/18 03:18 Potassium 3.6 mEq/L (3.5-5.1) 09/15/18 03:18 Chloride 108 mEq/L (98-107) H 09/15/18 03:18 Carbon Dioxide 26 mEq/L (23-29) 09/15/18 03:18 BUN 5 mg/dL (6-20) L 09/15/18 03:18 Creatinine 0.66 mg/dL (0.70-1.30) L 09/15/18 03:18 Est GFR ( Amer) > 60 (> 60) 09/15/18 03:18 Est GFR (Non-Af Amer) > 60 (> 60) 09/15/18 03:18 BUN/Creatinine Ratio 8 (6-26) 09/15/18 03:18 Glucose 147 mg/dL (70-105) H 09/15/18 03:18 Calculated Osmolality 290 (280-300) 09/15/18 03:18 Lactic Acid 2.2 mmol/L (0.5-2.2) 09/14/18 10:35 Calcium 8.9 mg/dL (8.6-10.3) 09/15/18 03:18 Phosphorus 3.2 mg/dL (2.7-4.5) 09/15/18 03:18 Magnesium 1.9 mg/dL (1.6-2.6) 09/15/18 03:18 Total Bilirubin 0.3 mg/dL (0.3-1.0) 09/14/18 10:22 AST 12 Units/L (13-39) L 09/14/18 10:22 ALT 16 Units/L (7-52) 09/14/18 10:22 Alkaline Phosphatase 126 Units/L (34-104) H 09/14/18 10:22 C-Reactive Protein 47 mg/L (Less than 10) H 09/14/18 10:22 Serum Total Protein 7.5 g/dL (6.4-8.9) 09/14/18 10:22 Albumin 4.1 g/dL (3.5-5.7) 09/14/18 10:22 Globulin 3.4 g/dL (2.4-3.5) 09/14/18 10:22 Albumin/Globulin Ratio 1.2 (1.1-2.2) 09/14/18 10:22 Urine Color Yellow (Yellow) 09/15/18 06:10 Urine Clarity Clear (Clear) 09/15/18 06:10 Urine pH 7.0 pH Units (5.0-8.0) 09/15/18 06:10 Ur Specific [place] 1.010 (1.010-1.025) 09/15/18 06:10 Urine Protein Negative mg/dL (Neg-Trace) 09/15/18 06:10 Urine Glucose (UA) Normal mg/dL (Normal) 09/15/18 06:10 Urine Ketones Negative mg/dL (Negative) 09/15/18 06:10 Urine Blood Negative (Negative) 09/15/18 06:10 Urine Nitrite Negative (Negative) 09/15/18 06:10 Urine Bilirubin Negative (Negative) 09/15/18 06:10 Urine Urobilinogen Normal mg/dL (Normal) 09/15/18 06:10 Ur Leukocyte Esterase Negative (Negative) 09/15/18 06:10 Vancomycin Trough 7 mcg/mL (5-10) 09/17/18 13:23 Salicylates < 2.5 mg/dL (15.0-30.0) L 09/14/18 10:22 Urine Opiates Screen Negative ng/mL (Nvpypd=375) 09/15/18 06:10 Acetaminophen < 10 mcg/mL (10-20) L 09/14/18 10:22 Ur Barbiturates Screen Negative ng/mL (Siczen=872) 09/15/18 06:10 Ur Phencyclidine Scrn Negative ng/mL (Cutoff=25) 09/15/18 06:10 Ur Amphetamines Screen Positive ng/mL (Abedsh=8220) H 09/15/18 06:10 U Benzodiazepines Scrn Negative ng/mL (Blehtd=806) 09/15/18 06:10 Urine Cocaine Screen Negative ng/mL (Cutoff= 300) 09/15/18 06:10 U Marijuana (THC) Screen Negative ng/mL (Cutoff = 50) 09/15/18 06:10 Ur Drug Screen Interp See Below 09/15/18 06:10 Result diagrams: 09/15/18 03:18 09/15/18 03:18 Lab Results 09/14/18 09/14/18 09/14/18 Range/Units 10:22 10:22 10:35 WBC 13.7 H (4.3-11.1) K/mcL RBC 4.74 (4.19-5.50) M/mcL Hgb 13.8 (12.9-16.9) g/dL Hct 41.1 (37.5-50.1) % MCV 86.7 (83.0-100.0) fL MCH 29.1 (28.0-33.3) pg MCHC 33.6 (31.6-35.5) g/dL RDW 12.5 (11.5-14.5) % Plt Count 324 (140-400) K/mcL MPV 10.0 (9.4-12.4) fL Immature Gran % 0.5 (0-4) % Seg Neutrophils % 87.2 % Lymphocytes % 6.1 % Monocytes % 5.2 % Eosinophils % 0.7 % Basophils % 0.3 % Neutrophils # 11.9 H (1.6-8.9) K/mcL Lymphocytes # 0.8 (0.6-4.6) K/mcL Monocytes # 0.7 (0.0-1.3) K/mcL Eosinophils # 0.1 (0.0-0.6) K/mcL Basophils # 0.0 (0.0-0.2) K/mcL ESR (0-10) mm/hr Sodium 140 (136-145) mEq/L Potassium 3.8 (3.5-5.1) mEq/L Chloride 104 (98-107) mEq/L Carbon Dioxide 27 (23-29) mEq/L BUN 4 L (6-20) mg/dL Creatinine 0.74 (0.70-1.30) mg/dL Est GFR ( Amer) > 60 (> 60) Est GFR (Non-Af Amer) > 60 (> 60) BUN/Creatinine Ratio 5 L (6-26) Glucose 112 H (70-105) mg/dL Calculated Osmolality 288 (280-300) Lactic Acid 2.2 (0.5-2.2) mmol/L Calcium 9.7 (8.6-10.3) mg/dL Phosphorus 2.3 L (2.7-4.5) mg/dL Magnesium 2.1 (1.6-2.6) mg/dL Total Bilirubin 0.3 (0.3-1.0) mg/dL AST 12 L (13-39) Units/L ALT 16 (7-52) Units/L Alkaline Phosphatase 126 H (34-104) Units/L C-Reactive Protein 47 H (Less than 10) mg/L Serum Total Protein 7.5 (6.4-8.9) g/dL Albumin 4.1 (3.5-5.7) g/dL Globulin 3.4 (2.4-3.5) g/dL Albumin/Globulin Ratio 1.2 (1.1-2.2) Salicylates < 2.5 L (15.0-30.0) mg/dL Acetaminophen < 10 L (10-20) mcg/mL 09/14/18 Range/Units 10:35 WBC (4.3-11.1) K/mcL RBC (4.19-5.50) M/mcL Hgb (12.9-16.9) g/dL Hct (37.5-50.1) % MCV (83.0-100.0) fL MCH (28.0-33.3) pg MCHC (31.6-35.5) g/dL RDW (11.5-14.5) % Plt Count (140-400) K/mcL MPV (9.4-12.4) fL Immature Gran % (0-4) % Seg Neutrophils % % Lymphocytes % % Monocytes % % Eosinophils % % Basophils % % Neutrophils # (1.6-8.9) K/mcL Lymphocytes # (0.6-4.6) K/mcL Monocytes # (0.0-1.3) K/mcL Eosinophils # (0.0-0.6) K/mcL Basophils # (0.0-0.2) K/mcL ESR 53 H (0-10) mm/hr Sodium (136-145) mEq/L Potassium (3.5-5.1) mEq/L Chloride (98-107) mEq/L Carbon Dioxide (23-29) mEq/L BUN (6-20) mg/dL Creatinine (0.70-1.30) mg/dL Est GFR ( Amer) (> 60) Est GFR (Non-Af Amer) (> 60) BUN/Creatinine Ratio (6-26) Glucose (70-105) mg/dL Calculated Osmolality (280-300) Lactic Acid (0.5-2.2) mmol/L Calcium (8.6-10.3) mg/dL Phosphorus (2.7-4.5) mg/dL Magnesium (1.6-2.6) mg/dL Total Bilirubin (0.3-1.0) mg/dL AST (13-39) Units/L ALT (7-52) Units/L Alkaline Phosphatase (34-104) Units/L C-Reactive Protein (Less than 10) mg/L Serum Total Protein (6.4-8.9) g/dL Albumin (3.5-5.7) g/dL Globulin (2.4-3.5) g/dL Albumin/Globulin Ratio (1.1-2.2) Salicylates (15.0-30.0) mg/dL Acetaminophen (10-20) mcg/mL - Radiology Data Radiology results reviewed: Yes I reviewed the patient's radiology results. Cervical Spine CT 09/14/18 10:22 IMPRESSION: No acute abnormality of the cervical spine. D/ / Jamari Zabala MD / Jamari Zabala MD Interpreting Provider: Jamari Zabala MD Head CT 09/14/18 10:22 IMPRESSION: 1.No acute intracranial abnormality. D/ / Ciro Beauchamp MD / Ciro Beauchamp MD Interpreting Provider: Ciro Beauchamp MD Foot X-Ray 09/14/18 10:29 IMPRESSION: 1.Dorsal soft tissue swelling without acute osseous abnormality. This likely represents cellulitis. D/ / Ciro Beauchamp MD / Ciro Beauchamp MD Interpreting Provider: Ciro Beauchamp MD Elbow X-Ray 09/14/18 11:25 IMPRESSION: Thin metallic foreign body in the lateral soft tissues of the distal arm with appearance for broken needle. No soft tissue gas. No acute bony abnormalities. No x-ray evidence for osteomyelitis. D/ / 09/14/2018 11:42:17 Jamari Zabala MD / mariel Interpreting Provider: Jamari Zabala MD Brain MRI 09/17/18 13:22 IMPRESSION: 1. Mild motion degraded examination. 2. No acute intracranial abnormality. No evidence of mesial temporal sclerosis. D/ / Marlena Bautista MD / Marlena Bautista MD Interpreting Provider: Marlena Bautista MD - EKG Data EKG attestation: Yes I reviewed and interpreted this EKG. EKG shows normal: sinus rhythm Rate: tachycardia Rhythm: NSR Interpretation: no acute changes
[2018-09-14 11:06] LABS: Basophils % 0.3 %; Eosinophils # 0.1 K/mcL (0.0-0.6); Eosinophils % 0.7 %; Hematocrit 41.1 % (37.5-50.1); Hemoglobin 13.8 g/dL (12.9-16.9); Immature Granulocytes % 0.5 % (0-4); Lymphocytes # 0.8 K/mcL (0.6-4.6); Lymphocytes % 6.1 %; Mean Corpuscular HGB Conc 33.6 g/dL (31.6-35.5); Mean Corpuscular Hemoglobin 29.1 pg (28.0-33.3); Mean Corpuscular Volume 86.7 fL (83.0-100.0); Monocytes # 0.7 K/mcL (0.0-1.3); Monocytes % 5.2 %; Neutrophils # 11.9 K/mcL (1.6-8.9); Platelet Count 324 K/mcL (140-400); Red Blood Count 4.74 M/mcL (4.19-5.50); Red Cell Distribution Width 12.5 % (11.5-14.5); Segmented Neutrophils % 87.2 %
[2018-09-14 11:23] LABS: Acetaminophen < 10 mcg/mL (10-20); Alanine Aminotransferase 16 Units/L (7-52); Albumin 4.1 g/dL (3.5-5.7); Albumin/Globulin Ratio 1.2 (1.1-2.2); Alkaline Phosphatase 126 Units/L (34-104); Aspartate Amino Transferase 12 Units/L (13-39); BUN/Creatinine Ratio 5 (6-26); Bilirubin,Total 0.3 mg/dL (0.3-1.0); Blood Urea Nitrogen 4 mg/dL (6-20); Calcium 9.7 mg/dL (8.6-10.3); Carbon Dioxide 27 mEq/L (23-29); Chloride 104 mEq/L (98-107); Globulin 3.4 g/dL (2.4-3.5); Glucose 112 mg/dL (70-105); Magnesium 2.1 mg/dL (1.6-2.6); Osmolality,Calculated 288 (280-300); Phosphorous 2.3 mg/dL (2.7-4.5); Potassium 3.8 mEq/L (3.5-5.1); Salicylate < 2.5 mg/dL (15.0-30.0); Sodium 140 mEq/L (136-145); Total Protein 7.5 g/dL (6.4-8.9); eGFR For Non-African Americans > 60 (> 60)
[2018-09-14] MEDS ORDERED: Tdap (Boostrix) Vaccine 0.5 ML SYRINGE IM ONE (11:25)
--- NOTE | 2018-09-14 12:20 | Emergency Department Note ---
Disposition Clinical Impression: Cellulitis of left foot Disposition: Admitted As Inpatient General Adult HPI - General Chief complaint: ED Seizure Stated complaint: seizure Time Seen by Provider: 09/14/18 10:15 Source: patient Mode of arrival: private vehicle Limitations: no limitations - History of Present Illness Pain Scale: 6 - Related Data Home Medications Medication Instructions Recorded Confirmed Gabapentin [Neurontin] 800 mg PO QID 11/23/17 09/14/18 RX: Methadone Oral Concentrate 110 mg PO DAILY 09/14/18 [Methadone] Allergies Allergy/AdvReac Type Severity Reaction Status Date / Time ketorolac [From Toradol] Allergy Rash Verified 09/14/18 10:14 Past Medical History - Past Medical History Medical history: Reports: no medical history Surgical history: Reports: no surgical history, other Psychiatric history: Reports: anxiety - Social History Smoking Status: Current every day smoker Smokeless Tobacco Status: No Alcohol use: Reports: none Drug use: Reports: cocaine, opiates, methamphetamine, other Physical Exam - General Limitations: no limitations General appearance: alert, in no apparent distress Course Vital Signs Temperature 98.7 F 09/14/18 10:23 Pulse Rate 88 09/14/18 10:23 Respiratory Rate 16 09/14/18 10:23 Blood Pressure 125/67 09/14/18 10:23 O2 Sat by Pulse Oximetry 94 09/14/18 10:23 Temperature 98.1 F 09/14/18 15:18 Pulse Rate 79 09/14/18 15:18 Respiratory Rate 18 09/14/18 15:18 Blood Pressure 120/73 09/14/18 15:18 O2 Sat by Pulse Oximetry 99 09/14/18 15:18 Oxygen Delivery Oxygen Delivery Room Air Medical Decision Making - Lab Data Result diagrams: 09/14/18 10:22 09/14/18 10:22 Lab Results 09/14/18 09/14/18 09/14/18 Range/Units 10:22 10:22 10:35 WBC 13.7 H (4.3-11.1) K/mcL RBC 4.74 (4.19-5.50) M/mcL Hgb 13.8 (12.9-16.9) g/dL Hct 41.1 (37.5-50.1) % MCV 86.7 (83.0-100.0) fL MCH 29.1 (28.0-33.3) pg MCHC 33.6 (31.6-35.5) g/dL RDW 12.5 (11.5-14.5) % Plt Count 324 (140-400) K/mcL MPV 10.0 (9.4-12.4) fL Immature Gran % 0.5 (0-4) % Seg Neutrophils % 87.2 % Lymphocytes % 6.1 % Monocytes % 5.2 % Eosinophils % 0.7 % Basophils % 0.3 % Neutrophils # 11.9 H (1.6-8.9) K/mcL Lymphocytes # 0.8 (0.6-4.6) K/mcL Monocytes # 0.7 (0.0-1.3) K/mcL Eosinophils # 0.1 (0.0-0.6) K/mcL Basophils # 0.0 (0.0-0.2) K/mcL ESR (0-10) mm/hr Sodium 140 (136-145) mEq/L Potassium 3.8 (3.5-5.1) mEq/L Chloride 104 (98-107) mEq/L Carbon Dioxide 27 (23-29) mEq/L BUN 4 L (6-20) mg/dL Creatinine 0.74 (0.70-1.30) mg/dL Est GFR ( Amer) > 60 (> 60) Est GFR (Non-Af Amer) > 60 (> 60) BUN/Creatinine Ratio 5 L (6-26) Glucose 112 H (70-105) mg/dL Calculated Osmolality 288 (280-300) Lactic Acid 2.2 (0.5-2.2) mmol/L Calcium 9.7 (8.6-10.3) mg/dL Phosphorus 2.3 L (2.7-4.5) mg/dL Magnesium 2.1 (1.6-2.6) mg/dL Total Bilirubin 0.3 (0.3-1.0) mg/dL AST 12 L (13-39) Units/L ALT 16 (7-52) Units/L Alkaline Phosphatase 126 H (34-104) Units/L C-Reactive Protein 47 H (Less than 10) mg/L Serum Total Protein 7.5 (6.4-8.9) g/dL Albumin 4.1 (3.5-5.7) g/dL Globulin 3.4 (2.4-3.5) g/dL Albumin/Globulin Ratio 1.2 (1.1-2.2) Salicylates < 2.5 L (15.0-30.0) mg/dL Acetaminophen < 10 L (10-20) mcg/mL 09/14/18 Range/Units 10:35 WBC (4.3-11.1) K/mcL RBC (4.19-5.50) M/mcL Hgb (12.9-16.9) g/dL Hct (37.5-50.1) % MCV (83.0-100.0) fL MCH (28.0-33.3) pg MCHC (31.6-35.5) g/dL RDW (11.5-14.5) % Plt Count (140-400) K/mcL MPV (9.4-12.4) fL Immature Gran % (0-4) % Seg Neutrophils % % Lymphocytes % % Monocytes % % Eosinophils % % Basophils % % Neutrophils # (1.6-8.9) K/mcL Lymphocytes # (0.6-4.6) K/mcL Monocytes # (0.0-1.3) K/mcL Eosinophils # (0.0-0.6) K/mcL Basophils # (0.0-0.2) K/mcL ESR 53 H (0-10) mm/hr Sodium (136-145) mEq/L Potassium (3.5-5.1) mEq/L Chloride (98-107) mEq/L Carbon Dioxide (23-29) mEq/L BUN (6-20) mg/dL Creatinine (0.70-1.30) mg/dL Est GFR ( Amer) (> 60) Est GFR (Non-Af Amer) (> 60) BUN/Creatinine Ratio (6-26) Glucose (70-105) mg/dL Calculated Osmolality (280-300) Lactic Acid (0.5-2.2) mmol/L Calcium (8.6-10.3) mg/dL Phosphorus (2.7-4.5) mg/dL Magnesium (1.6-2.6) mg/dL Total Bilirubin (0.3-1.0) mg/dL AST (13-39) Units/L ALT (7-52) Units/L Alkaline Phosphatase (34-104) Units/L C-Reactive Protein (Less than 10) mg/L Serum Total Protein (6.4-8.9) g/dL Albumin (3.5-5.7) g/dL Globulin (2.4-3.5) g/dL Albumin/Globulin Ratio (1.1-2.2) Salicylates (15.0-30.0) mg/dL Acetaminophen (10-20) mcg/mL Attestation Statement - Attestation Attestation: For this encounter, I have reviewed the TOBACCO CURER or PA documentation, treatment plan, and medical decision making; and I have had face to face time with this patient. Patient presents to the ED with a chief complaint of a fall. Patient states is having twitching for couple days and has not felt well. Today he states he had some twitching. Neighbor states they with a saw some seizure activity. He fell off the porch. He is also complaining of an infection to his left foot. Patient is an IV drug user and injects into the foot. Denies fever. Denies neck pain or stiffness. On examination he does have some scrapes and abrasions to the side of his face. Erythema and swelling to the dorsum of the left foot with erythema extending into the proximal ureña. Plan. Patient is a pretty significant cellulitis. Starting IV antibiotic. Patient will be admitted to medicine. Patient had a CT of his head for the fall. Questionable dysarthria actually had a seizure. He is not experiencing any meningismus or fever. I do not believe he needs a lumbar puncture.
[2018-09-14] MEDS ORDERED: Naloxone 0.4 MG/ML INJ IVP PRN (13:52)
[2018-09-14] MEDS ORDERED: Acetaminophen 325 MG TABLET PO PRN (14:25)
[2018-09-14 15:59] LABS: C-Reactive Protein 47 mg/L (Less than 10)
--- NOTE | 2018-09-14 16:13 | Electrocardiograph Report ---
[facility] Test Date: 2018-09-14 Pat Name: Isac Morrell Department: [id number] Room: 3B37 Gender: M Mechanic: : 1990 Requested By: Cami Benson Order Number: [id number] Fabián MD: Morro Santiago Measurements Intervals [place] Rate: 78 P: 6 UT: 128 QRS: 14 QRSD: 83 T: 55 QT: 385 QTc: 439 Interpretive Statements Sinus rhythm Electronically Signed On 09-14-2018 16:11:58 EDT by Morro Santiago
[2018-09-14] MEDS: Piperacillin/Tazobactam 3.375 GM in 0.9 % Sodium Chloride Mini Bag 100 ML IVPB SCH (16:25)
[2018-09-14] MEDS: hydrOXYzine pamoate 25 MG CAPSULE PO SCH ×2 (16:25→20:01)
[2018-09-14] MEDS: Gabapentin 400 MG CAPSULE PO SCH ×2 (16:25→20:01)
[2018-09-14] MEDS: 0.9 % Sodium Chloride 1,000 ML IVC SCH (16:26)
--- NOTE | 2018-09-14 19:25 | Internal Med History&Physical ---
Date of Encounter: 09/14/18 Time of Encounter: 14:00 Internal Medicine - H&P: HPI Chief complaint: Seizure today, foot cellulitis for about 5 days and needle inelbow History of present illness: Mr. Morrell is a 28 year old male with pmh of polysubstance abuse with Iv drugs, currently in a recovery program on methadone, seizures presenting with complaints of I had a seizure today and I have had redness and pain of my left foot. Patient admits to seizures in the past when he hasn't taken his methadone, but says he took his methadone. He was having a conversation with a neighbor and the next thing he remembers is waking up on the floor. Per the neighbor, he had facial twitching and fell to the ground and hit the right side of his face. Denies any tongue biting or unrinary incontinence or fevers or chills. He also admits to having relapsed and been injecting IV drugs in his foot and arm. He complains of tenderness over the left foot and has had redness and swell ing. he also has redness over the left forearm. In the ER, foot xray showed foot swelling with no acute osseous abnormality. Elbow xray showed broken needle in lateral soft tissue of distal arm. Ortho and neuro have been consulted and he is being admitted for further management Past Med Surg Social Fam HX - Past Medical History Medical history: no medical history Additional medical history: Hepatitis C Psychiatric history: anxiety - Past Surgical History Surgical History: no surgical history, other Additional surgical history: left hand surgery - Social History Smoking Status: Current every day smoker Smokeless Tobacco Status: No Alcohol use: none Drug use: cocaine, opiates, methamphetamine, other - Family History Mother Living Status: Still Living Hx Family Neurologic Disorders: No Father Living Status: Still Living Hx Family Neurologic Disorders: No Internal Medicine - H&P: Meds Gabapentin [Neurontin] 800 mg PO QID 11/23/17 [History] Methadone Oral Concentrate [Methadone] 110 mg PO DAILY 09/14/18 [History] Allergy/AdvReac Type Severity Reaction Status Date / Time ketorolac [From Toradol] Allergy Rash Verified 09/14/18 10:14 All Systems PM: A 10-system review of systems was performed and is negative for pertinent findings except as documented above in the HPI. - Constitutional Constitutional: no chills, no fever(s), no night sweats - EENT Eyes: no change in vision, no discharge, no pain, no photophobia Ears: no ear discharge, no ear pain, no tinnitus Nose, mouth and throat: no dysphagia, no nasal discharge, no neck pain, no sore throat - Cardiovascular Cardiovascular ROS IM: no chest pain, no diaphoresis, no dyspnea, no lightheadedness, no palpitations, no syncope - Respiratory Respiratory: no cough, no dyspnea, no wheezing, no excessive phlegm production - Gastrointestinal Gastrointestinal: no abdominal pain, no diarrhea, no hematemesis, no hematochezia, no melena, no nausea, no vomiting - Musculoskeletal Musculoskeletal ROS IM: no numbness, no tingling - Integumentary Integumentary IM: skin ulcer, no rash, no unusual bruising Additional comments: foot swelling and redness - Neurological Neurological ROS: no confusion, no convulsions, no focal weakness, no numbness, no tingling, no tremor(s) - Hematologic/Lymphatic Hematologic/Lymphatic: no easy bruising - Constitutional Vitals: Temp Pulse Resp BP Pulse Ox 98.7 F 88 16 124/72 94 09/14/18 10:23 09/14/18 10:23 09/14/18 13:57 09/14/18 13:57 09/14/18 10:23 Exam: NAD - Head Head exam: Present: atraumatic, normocephalic - Eye Eye exam: Present: PERRL, conjuntiva pink, sclera anicteric Pupils: Present: PERRL - Neck Neck exam general surgery: Present: supple, trachea midline. Absent: lymphadenopathy - Respiratory Respiratory exam: Present: CTAB. Absent: accessory muscle use, rales, rhonchi, wheezes - Cardiovascular Cardiovascular exam: Present: RRR, +S1, +S2. Absent: diastolic murmur, gallop, rubs, systolic murmur - GI/Abdominal GI/Abdominal exam: Present: normal bowel sounds, soft, no peritoneal signs. Absent: distended, tenderness - Extremities Exam Extremities exam: Present: warm, radial pulses palpable and symmetrical. Absent: calf tenderness, cyanotic, pedal edema - Neurological Exam Neurological exam: Present: CN II-XII intact, oriented X3, no focal deficits. Absent: pronater drift, facial droop, speech deficit - Skin Skin exam: Present: dry, erythema, intact Additional comments: Foot ulcer and redness, left arm redness Internal Med - H&P Results - Labs CBC & Chem 7: 09/14/18 10:22 09/14/18 10:22 Labs: Short CBC 09/14/18 Range/Units 10:22 WBC 13.7 H (4.3-11.1) K/mcL Hgb 13.8 (12.9-16.9) g/dL Hct 41.1 (37.5-50.1) % Plt Count 324 (140-400) K/mcL Neutrophils # 11.9 H (1.6-8.9) K/mcL BMP 09/14/18 10:22 Sodium 140 Potassium 3.8 Chloride 104 Carbon Dioxide 27 BUN 4 L Creatinine 0.74 Glucose 112 H Calcium 9.7 Liver Function 09/14/18 Range/Units 10:22 Total Bilirubin 0.3 (0.3-1.0) mg/dL AST 12 L (13-39) Units/L ALT 16 (7-52) Units/L Alkaline Phosphatase 126 H (34-104) Units/L Albumin 4.1 (3.5-5.7) g/dL - Impressions ITS Impressions Cervical Spine CT 09/14/18 10:22 IMPRESSION: No acute abnormality of the cervical spine. D/ / Jamari Zabala MD / Jamari Zabala MD Interpreting Provider: Jamari Zabala MD Head CT 09/14/18 10:22 IMPRESSION: 1.No acute intracranial abnormality. D/ / Ciro Beauchamp MD / Ciro Beauchamp MD Interpreting Provider: Ciro Beauchamp MD Foot X-Ray 09/14/18 10:29 IMPRESSION: 1.Dorsal soft tissue swelling without acute osseous abnormality. This likely represents cellulitis. D/ / Ciro Beaucahmp MD / Ciro Beauchamp MD Interpreting Provider: Ciro Beauchamp MD Elbow X-Ray 09/14/18 11:25 IMPRESSION: Thin metallic foreign body in the lateral soft tissues of the distal arm with appearance for broken needle. No soft tissue gas. No acute bony abnormalities. No x-ray evidence for osteomyelitis. D/ / 09/14/2018 11:42:17 Jamari Zabala MD / jacob thurman Interpreting Provider: Jamari Zabala MD - Assessment and plan (1) Seizure Current Visit: Yes Status: Acute Assessment and plan: Acute witnessed seizure. Has multiple admissions for drug withdrawal seizures. Not currently on any antiepileptics. Neuro consulted and appreciate recs (2) Cellulitis Current Visit: Yes Status: Acute Assessment and plan: Started on vanc and zsoyn. Obtain blood cultures, ESR, CRP Pt also has retained needle in left elbow. Ortho consulted and appreciate recs Qualifiers: Site of cellulitis: extremity Site of cellulitis of extremity: upper extremity Laterality: left Qualified Code(s): L03.114 - Cellulitis of left upper limb (3) Foreign body (FB) in soft tissue Current Visit: Yes Status: Acute Assessment and plan: Pt also has retained needle in left elbow. Ortho consulted and appreciate recs (4) Drug abuse and dependence Current Visit: Yes Status: Chronic Assessment and plan: Counseled. Says he plans to go to drug rehab in [place] (5) DVT prophylaxis Current Visit: Yes Status: Acute Assessment and plan: Heparin sc - Time Spent With Patient Total time spent is greater than 50% in coordination of care (as documented) at patient's floor/unit and/or counseling patient:
--- NOTE | 2018-09-14 19:42 | Orthopedic Consult Note ---
Date of Encounter: 09/14/18 Time of Encounter: 17:51 Assessment and Plan (1) Foreign body (FB) in soft tissue Current Visit: Yes Status: Acute I did have a long discussion with the patient. With regard to the foreign body, it is currently not symptomatic however it has migrated and the patient is concern that it may migrate further which is certainly possible. At this point he wants to continue observation and consider removal in the future. We will do so as an outpatient after his current infection has resolved in order to reduce the risk of the surgical site infection. I will follow him as an outpatient to discuss this further with him. At this point he does not have any definite abscesses but I do recommend observation on vancomycin and Zosyn. He may require I&D of the left volar forearm region and I will see him tomorrow morning to evaluate his clinical progress. I do recommend elevation and motion exercises to reduce the risk of stiffness. History of Present Illness HPI: Mr. Morrell is a 28 year old male who is currently admitted to the hospitalist for seizure. He is a recovering IV drug user however he has had recent relapses and is also noted to have left lower extremity cellulitis as well as a small patch of volar distal forearm cellulitis and the retained needle on the lateral aspect of his left elbow. The retained needle was not symptomatic and he says has been present for about 2 months and was initially in the antecubital region where he injected however does appear to have migrated. Currently he has mild pain to the volar left distal forearm region as well as the left foot. He endorses a history of cellulitis on the left volar distal forearm region for about 4-5 days and was from an injection. It is not changed significantly. For about 2 months he has had cellulitis on the left foot and ureña region which has improved relatively recently and is associated with mild and achy pain. He denies any numbness, tingling, or any other associated signs or symptoms or modifying factors. Past Med Surg Social Fam HX - Past Medical History Medical history: no medical history Additional medical history: Hepatitis C Psychiatric history: anxiety - Past Surgical History Surgical History: no surgical history, other Additional surgical history: left hand surgery - Social History Smoking Status: Current every day smoker Packs per day: 1 Smokeless Tobacco Status: No Alcohol use: none Drug use: cocaine, opiates, methamphetamine, other - Family History Mother Living Status: Still Living Hx Family Cardiac Disorders: No Hx Family Respiratory Disorders: No Hx Family Cancer: No Hx Family GI Disorders: No Hx Family Genitourinary Disorders: No Hx Family Endocrine Disorder: No Hx Family Musculoskeletal Disorders: No Hx Family Neuromuscular Disorders: No Hx Family Neurologic Disorders: No Hx Family HEENT Disorders: No Hx Family Autoimmune Disorders: No Hx Family Reproductive Disorders: No Hx Family Psychosocial Disorders: No Father Living Status: Still Living Hx Family Cardiac Disorders: No Hx Family Respiratory Disorders: Yes (COPD) Hx Family Cancer: No Hx Family GI Disorders: No Hx Family Genitourinary Disorders: No Hx Family Endocrine Disorder: No Hx Family Musculoskeletal Disorders: No Hx Family Neuromuscular Disorders: No Hx Family Neurologic Disorders: No Hx Family HEENT Disorders: No Hx Family Autoimmune Disorders: No Hx Family Reproductive Disorders: No Hx Family Psychosocial Disorders: No Medications and Allergies Gabapentin [Neurontin] 800 mg PO QID 11/23/17 [History] Methadone Oral Concentrate [Methadone] 110 mg PO DAILY 09/14/18 [History] Allergy/AdvReac Type Severity Reaction Status Date / Time ketorolac [From Toradol] Allergy Rash Verified 09/14/18 10:14 All Systems Reviewed: The remainder of the systems were reviewed and are negative Review of systems: Constitutional and musculoskeletal systems were reviewed and are negative unless otherwise stated in history of present illness. Physical Exam - Constitutional Vitals: Temp Pulse Resp BP Pulse Ox 98.1 F 79 18 120/73 99 09/14/18 15:18 09/14/18 15:18 09/14/18 15:18 09/14/18 15:18 09/14/18 15:18 Constitutional -Vitals reviewed -The patient is well developed and well nourished. -Mood is pleasant. -The patient is well groomed. Psychiatric -The patient is fully alert and oriented x 3. Respiratory: -Respiratory effort normal Abdomen: -Soft abdomen -Non tender -Non distended: Left upper extremity: -No deformities. The overlying skin is intact. No obvious signs of acute trauma. -Moderate tenderness to palpation over the volar distal forearm region with a 5 cm area of cellulitis in a circular pattern. No definite abscess. No induration. -No significant pain with passive motion of the shoulder, elbow, wrist, and fingers within the limits of the bed. -Able to make an "OK" sign, cross the index and long fingers, and extend the thumb. -Sensation grossly intact to light touch throughout the median, radial, and ulnar distributions. -Radial pulse is present; Fingers have good capillary refill. Right upper extremity: -No deformities. The overlying skin is intact. No obvious signs of acute trauma. -No tenderness to palpation throughout. -No significant pain with passive motion of the shoulder, elbow, wrist, and fingers within the limits of the bed. -Able to make an "OK" sign, cross the index and long fingers, and extend the thumb. -Sensation grossly intact to light touch throughout the median, radial, and ulnar distributions. -Radial pulse is present; Fingers have good capillary refill. Left lower extremity: -No deformities. The overlying skin is intact. Mild cellulitis and swelling of the foot spreading into the distal ureña region without any fluctuance or induration or concern for drainable abscess. -No pain with passive motion of the hip, knee, ankle, and toes within the limits of the bed. -No pain with axial loading of the thigh. -Able to dorsiflex and plantarflex the ankle and toes. -Sensation is grossly intact to light touch throughout the sural, saphenous, s uperficial peroneal, and deep peroneal distributions. -Toes have good capillary refill. Right lower extremity: -No deformities. The overlying skin is intact. No obvious signs of acute trauma. -No tenderness to palpation throughout. -No pain with passive motion of the hip, knee, ankle, and toes within the limits of the bed. -No pain with axial loading of the thigh. -Able to dorsiflex and plantarflex the ankle and toes. -Sensation is grossly intact to light touch throughout the sural, saphenous, superficial peroneal, and deep peroneal distributions. -Toes have good capillary refill. Diagnostic Imaging: I did personally review and interpret x-rays of the left elbow show a retained needle in the lateral soft tissues. X-rays of the left foot show mild swelling without fractures. Results - Labs Result Diagrams: 09/14/18 10:22 09/14/18 10:22 Labs: Abnormal lab results WBC 13.7 K/mcL (4.3-11.1) H 09/14/18 10:22 Neutrophils # 11.9 K/mcL (1.6-8.9) H 09/14/18 10:22 ESR 53 mm/hr (0-10) H 09/14/18 10:35 BUN 4 mg/dL (6-20) L 09/14/18 10:22 BUN/Creatinine Ratio 5 (6-26) L 09/14/18 10:22 Glucose 112 mg/dL (70-105) H 09/14/18 10:22 Phosphorus 2.3 mg/dL (2.7-4.5) L 09/14/18 10:22 AST 12 Units/L (13-39) L 09/14/18 10:22 Alkaline Phosphatase 126 Units/L (34-104) H 09/14/18 10:22 C-Reactive Protein 47 mg/L (Less than 10) H 09/14/18 10:22 Salicylates < 2.5 mg/dL (15.0-30.0) L 09/14/18 10:22 Acetaminophen < 10 mcg/mL (10-20) L 09/14/18 10:22 H & H 09/14/18 Range/Units 10:22 Hgb 13.8 (12.9-16.9) g/dL Hct 41.1 (37.5-50.1) % All other labs normal. Consult Discharge Plan - Plan Referrals: Jeremias Kiser, PAC [Primary Care Provider] -
[2018-09-14] MEDS ORDERED: Vancomycin (wt based) 1,000 MG VIAL IVPB SCH (21:00)
[2018-09-14] MEDS ORDERED: NON-FORMULARY MEDICATION 1 EACH EACH (Buprenorphine Hcl/Naloxone Hcl [Suboxone 8 Mg-2 Mg S SL SCH (21:00)
[2018-09-14] MEDS ORDERED: traMADol 50 MG TABLET PO ONE (22:06)
[2018-09-15] MEDS: Piperacillin/Tazobactam 3.375 GM in 0.9 % Sodium Chloride Mini Bag 100 ML IVPB SCH ×3 (00:46→15:07)
[2018-09-15] MEDS: 0.9 % Sodium Chloride 1,000 ML IVC SCH (02:22)
[2018-09-15 04:10] LABS: Basophils % 0.3 %; Eosinophils # 0.2 K/mcL (0.0-0.6); Eosinophils % 2.4 %; Hemoglobin 12.6 g/dL (12.9-16.9); Immature Granulocytes % 0.4 % (0-4); Lymphocytes # 1.6 K/mcL (0.6-4.6); Lymphocytes % 16.4 %; Mean Corpuscular HGB Conc 33.2 g/dL (31.6-35.5); Mean Corpuscular Hemoglobin 28.5 pg (28.0-33.3); Mean Platelet Volume 10.4 fL (9.4-12.4); Monocytes # 0.8 K/mcL (0.0-1.3); Monocytes % 7.7 %; Neutrophils # 7.2 K/mcL (1.6-8.9); Platelet Count 295 K/mcL (140-400); Red Blood Count 4.42 M/mcL (4.19-5.50); Red Cell Distribution Width 12.6 % (11.5-14.5); Segmented Neutrophils % 72.8 %
[2018-09-15 04:29] LABS: BUN/Creatinine Ratio 8 (6-26); Blood Urea Nitrogen 5 mg/dL (6-20); Calcium 8.9 mg/dL (8.6-10.3); Carbon Dioxide 26 mEq/L (23-29); Chloride 108 mEq/L (98-107); Glucose 147 mg/dL (70-105); Magnesium 1.9 mg/dL (1.6-2.6); Osmolality,Calculated 290 (280-300); Phosphorous 3.2 mg/dL (2.7-4.5); Potassium 3.6 mEq/L (3.5-5.1); Sodium 140 mEq/L (136-145); eGFR For Non-African Americans > 60 (> 60)
[2018-09-15 06:31] LABS: Bilirubin,Urine Negative (Negative); Blood,Urine Negative (Negative); Clarity,Urine Clear (Clear); Color,Urine Yellow (Yellow); Glucose,Urine (UA) Normal (Normal); Ketones,Urine Negative (Negative); Leukocyte Esterase,Urine Negative (Negative); Nitrite,Urine Negative (Negative); Protein,Urine Negative (Neg-Trace); Urobilinogen,Urine Normal (Normal)
[2018-09-15 07:21] LABS: Amphetamine Screen,Urine Positive ng/mL (Cutoff=1000); Barbiturate Screen,Urine Negative ng/mL (Cutoff=200)
[2018-09-15 07:22] LABS: Benzodiazepines Screen,Urine Negative ng/mL (Cutoff=300); Cannabinoid Screen,Urine Negative ng/mL (Cutoff = 50); Cocaine Screen,Urine Negative ng/mL (Cutoff= 300); Opiate Screen,Urine Negative ng/mL (Cutoff=300); Phencyclidine Screen,Urine Negative ng/mL (Cutoff=25)
[2018-09-15] MEDS: Gabapentin 400 MG CAPSULE PO SCH ×3 (07:55→19:45)
[2018-09-15] MEDS: hydrOXYzine pamoate 25 MG CAPSULE PO SCH ×3 (07:56→19:45)
[2018-09-15] MEDS ORDERED: *HR* Methadone 10 MG TABLET PO SCH (09:00)
--- NOTE | 2018-09-15 11:03 | Internal Med Progress Note ---
Hospitalist Progress Note - Encounter Date of Encounter: 09/15/18 Time of Encounter: 11:00 - Exam Vitals: Temp Pulse Resp BP Pulse Ox 98.8 F 71 18 138/76 97 09/15/18 07:01 09/15/18 07:01 09/15/18 07:01 09/15/18 07:01 09/15/18 07:01 Exam: NAD - Assessment and Plan (1) Seizure Current Visit: Yes Status: Acute Assessment and Plan: Acute witnessed seizure. Has multiple admissions for drug withdrawal seizures. Not currently on any antiepileptics. Neuro consulted and appreciate recs (2) Cellulitis Current Visit: Yes Status: Acute Assessment and Plan: Continue on vanc and zsoyn. Follow blood cultures Pt also has retained needle in left elbow. Ortho consulted and appreciate recs (3) Abscess Current Visit: Yes Status: Acute Assessment and Plan: Left forearm abscess s/p incision and drainage by ortho. Continue IV antibiotics (4) Foreign body (FB) in soft tissue Current Visit: Yes Status: Acute Assessment and Plan: Pt also has retained needle in left elbow. Ortho consulted and plan to extract needle as an outpatient (5) Drug abuse and dependence Current Visit: Yes Status: Chronic Assessment and Plan: Counseled. Says he plans to go to drug rehab in [place] (6) DVT prophylaxis Current Visit: Yes Status: Acute Assessment and Plan: Heparin sc - Time Spent with Patient Total time spent is greater than 50% in coordination of care (as documented) at patient's floor/unit and/or counseling patient: Internal Medicine: Result - Labs CBC & Chem 7: 09/15/18 03:18 09/15/18 03:18 Labs: Short CBC 09/14/18 09/15/18 Range/Units 10:22 03:18 WBC 13.7 H 9.9 (4.3-11.1) K/mcL Hgb 13.8 12.6 L (12.9-16.9) g/dL Hct 41.1 38.0 (37.5-50.1) % Plt Count 324 295 (140-400) K/mcL Neutrophils # 11.9 H 7.2 (1.6-8.9) K/mcL BMP 09/14/18 09/15/18 10:22 03:18 Sodium 140 140 Potassium 3.8 3.6 Chloride 104 108 H Carbon Dioxide 27 26 BUN 4 L 5 L Creatinine 0.74 0.66 L Glucose 112 H 147 H Calcium 9.7 8.9 Liver Function 09/14/18 Range/Units 10:22 Total Bilirubin 0.3 (0.3-1.0) mg/dL AST 12 L (13-39) Units/L ALT 16 (7-52) Units/L Alkaline Phosphatase 126 H (34-104) Units/L Albumin 4.1 (3.5-5.7) g/dL Urine 09/15/18 Range/Units 06:10 Urine Color Yellow (Yellow) Urine Clarity Clear (Clear) Urine pH 7.0 (5.0-8.0) pH Units Ur Specific [place] 1.010 (1.010-1.025) Urine Protein Negative (Neg-Trace) mg/dL Urine Glucose (UA) Normal (Normal) mg/dL - Impressions Impressions Cervical Spine CT 09/14/18 10:22 IMPRESSION: No acute abnormality of the cervical spine. D/ / Jamari Zabala MD / Jamari Zabala MD Interpreting Provider: Jamari Zabala MD Head CT 09/14/18 10:22 IMPRESSION: 1.No acute intracranial abnormality. D/ / Ciro Beauchamp MD / Ciro Beauchamp MD Interpreting Provider: Ciro Beauchamp MD Foot X-Ray 09/14/18 10:29 IMPRESSION: 1.Dorsal soft tissue swelling without acute osseous abnormality. This likely represents cellulitis. D/ / Ciro Beauchamp MD / Ciro Beauchamp MD Interpreting Provider: Ciro Beauchamp MD Elbow X-Ray 09/14/18 11:25 IMPRESSION: Thin metallic foreign body in the lateral soft tissues of the distal arm with appearance for broken needle. No soft tissue gas. No acute bony abnormalities. No x-ray evidence for osteomyelitis. D/ / 09/14/2018 11:42:17 Jamari Zabala MD / mariel Interpreting Provider: Jamari Zabala MD Consult Discharge Plan - Plan Referrals: Jeremias Kiser, PAC [Primary Care Provider] - (2) Cellulitis Qualifiers: Site of cellulitis: extremity Site of cellulitis of extremity: upper extr emity Laterality: left Qualified Code(s): L03.114 - Cellulitis of left upper limb
--- NOTE | 2018-09-15 12:14 | Orthopedics Progress Note ---
Date of Encounter: 09/15/18 Time of Encounter: 12:09 - Assessment and Plan (1) Foreign body (FB) in soft tissue Current Visit: Yes Status: Acute Subjective Interval history: S: The patient is resting in bed comfortably with improved pain to the left forearm in left foot. O: Afebrile on the vital signs are stable Improved cellulitis to he left foot. Persistent cellulitiscthe left volar forearm with slight fluctuance. Neurovasculrly intact distally to both extremities A: Left elbow region foreign body Left distal forearm abscess Left foot cellulitis improving P: Regarding the foreign body, the patient would like this removed however we will wait an do this on an elective basis after he has cleared his active infections. I do recommend incision and drainage off the left volar forearm region due to concern for abscess. After informed consent an a timeout identify the correct patient, correct procedure, and the correct side I did set up a sterile field around the left volar wrist area and using a 15 blade I made a 1 cm longitudinal incision over the area of fluctuance and decompressed grossly purulent material which was swabbed for culture. I flushed the wound and packed open with quarter-inch iodoform packing and placed a sterile dressing. the left lower extremity cellulitis is improving. We will observe for now. Continue IV abx per primary team. Objective Vital signs: Vital Signs Temp Pulse Resp BP Pulse Ox 09/15/18 11:58 98.6 F 73 18 124/73 94 09/15/18 07:01 98.8 F 71 18 138/76 97 09/15/18 03:08 97.9 F 84 16 118/68 97 09/14/18 22:57 98.4 F 86 16 113/57 95 09/14/18 18:49 97.8 F 89 17 134/72 98 09/14/18 15:18 98.1 F 79 18 120/73 99 09/14/18 14:48 98.2 F 77 18 117/66 99 09/14/18 13:57 16 124/72 Intake and Output 09/14/18 09/15/18 09/15/18 23:59 07:59 15:59 Intake Total 580 / 580 1100 / 1100 480 / 480 Output Total 0 / 0 1100 / 1100 500 / 500 Balance 580 / 580 0 / 0 -20 / -20 Intake: IV Fluids 100 / 100 1100 / 1100 0.9 % Sodium Chloride 1,000 ML 1000 / 1000 @ 100 mls/hr IVC .Q10H [facility] Rx#: [id number] Zosyn 3.375 GM In 0.9 % Sodium 100 / 100 100 / 100 Chloride (Mini-Bag +) 100 ML @ 25 mls/hr IVPB Q8HR [facility] Rx#: [id number] Oral 480 / 480 480 / 480 Output: Urine 0 / 0 1100 / 1100 500 / 500 Other: Meal Dinner Breakfast Percent of Meal Consumed 90% 100% # Voids 1 1 Weight 90.378 kg Patient Weight 09/15/18 23:59 Weight 90.378 kg - Labs CBC & BMP: 09/15/18 03:18 09/15/18 03:18 Labs: Abnormal lab results Hgb 12.6 g/dL (12.9-16.9) L 09/15/18 03:18 ESR 53 mm/hr (0-10) H 09/14/18 10:35 Chloride 108 mEq/L (98-107) H 09/15/18 03:18 BUN 5 mg/dL (6-20) L 09/15/18 03:18 Creatinine 0.66 mg/dL (0.70-1.30) L 09/15/18 03:18 Glucose 147 mg/dL (70-105) H 09/15/18 03:18 AST 12 Units/L (13-39) L 09/14/18 10:22 Alkaline Phosphatase 126 Units/L (34-104) H 09/14/18 10:22 C-Reactive Protein 47 mg/L (Less than 10) H 09/14/18 10:22 Salicylates < 2.5 mg/dL (15.0-30.0) L 09/14/18 10:22 Acetaminophen < 10 mcg/mL (10-20) L 09/14/18 10:22 Ur Amphetamines Screen Positive ng/mL (Igzabh=2120) H 09/15/18 06:10 Consult Discharge Plan - Plan Referrals: Jeremias Kiser, PAC [Primary Care Provider] -
--- NOTE | 2018-09-15 13:17 | Neurology - Consult Note ---
Date of Encounter: 09/15/18 Time of Encounter: 13:13 Assessment and Plan (1) Spell of altered consciousness Current Visit: Yes Status: Acute I am not convinced that this patient truly has epilepsy. I believe that these episodes are more than likely symptomatic and in someway related to his history of substance abuse. A urine tox screen was not ordered at the time of admission. However he has had previous tox screens positive for stimulants including amphetamines and cocaine. In general or. Withdrawal does not result in seizure activity. And I am not convinced that he has idiopathic epilepsy. I will however obtain an MRI scan of the brain to rule out any anatomic abnormalities. I would hold off on antiepileptic treatment at this time. For one, I am not convinced that he truly has epilepsy, and I am not convinced that even if we were to start empiric antiepileptic medications that he would be compliant. However seizure precautions were discussed. He is not to drive an automobile or operate any type of dangerous equipment under any circumstances. History of Present Illness HPI: The chart was reviewed, the patient was seen and examined. Isac Barajas is a 28-year-old male who is seen for neurologic consultation at the request of the hospitalist secondary to an episode of possible seizure activity. 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 He has been on Suboxone and apparently is now on methadone. He states that he was sitting out in front of his house waiting for his girlfriend to show up apparently a neighbor witnessed him having an event. He states that it lasted for about 10 seconds or so when he had some twitching. He did not experience urinary incontinence or oral trauma. He was previously seen and evaluated by Dr. Bell in November of this year for a similar episode. He did have an EEG that demonstrated what may have been epileptiform potentials. However he did not follow up for a 24-hour ambulatory EEG as recommended. Currently he is awake alert and oriented and is able to give his own history. He has not however had an MRI scan of the brain. Past Med Surg Social Fam HX - Past Medical History Medical history: no medical history Additional medical history: Hepatitis C Psychiatric history: anxiety - Past Surgical History Surgical History: no surgical history, other Additional surgical history: left hand surgery - Social History Smoking Status: Current every day smoker Packs per day: 1 Smokeless Tobacco Status: No Alcohol use: none Drug use: cocaine, opiates, methamphetamine, other - Family History Mother Living Status: Still Living Hx Family Cardiac Disorders: No Hx Family Respiratory Disorders: No Hx Family Cancer: No Hx Family GI Disorders: No Hx Family Genitourinary Disorders: No Hx Family Endocrine Disorder: No Hx Family Musculoskeletal Disorders: No Hx Family Neuromuscular Disorders: No Hx Family Neurologic Disorders: No Hx Family HEENT Disorders: No Hx Family Autoimmune Disorders: No Hx Family Reproductive Disorders: No Hx Family Psychosocial Disorders: No Father Living Status: Still Living Hx Family Cardiac Disorders: No Hx Family Respiratory Disorders: Yes (COPD) Hx Family Cancer: No Hx Family GI Disorders: No Hx Family Genitourinary Disorders: No Hx Family Endocrine Disorder: No Hx Family Musculoskeletal Disorders: No Hx Family Neuromuscular Disorders: No Hx Family Neurologic Disorders: No Hx Family HEENT Disorders: No Hx Family Autoimmune Disorders: No Hx Family Reproductive Disorders: No Hx Family Psychosocial Disorders: No Medications and Allergies Gabapentin [Neurontin] 800 mg PO QID 11/23/17 [History] Methadone Oral Concentrate [Methadone] 110 mg PO DAILY 09/14/18 [History] Allergy/AdvReac Type Severity Reaction Status Date / Time ketorolac [From Toradol] Allergy Rash Verified 09/14/18 10:14 All Systems: The remainder of the systems were reviewed and are negative Review of Systems: The balance of the systems review is negative. Physical Examination - Vital Signs Vital Signs: Initial Vital Signs Temp Pulse Resp BP Pulse Ox 98.7 F 88 16 125/67 94 09/14/18 10:23 09/14/18 10:23 09/14/18 10:23 09/14/18 10:23 09/14/18 10:23 - Neurologic Detailed motor examination: full strength in all major muscle groups Motor examination - right side: 55: deltoids, biceps, triceps, wrist flexion, wrist extension, bucket wash operator, hip flexors, tibialis Anterior, quadriceps, toe extension (EHL), plantarflexion Motor examination - left side: 5/5: deltoids, biceps, triceps, wrist flexion, wrist extension, hip flexors, bucket wash operator, quadriceps, tibialis Anterior, toe extension (EHL), plantarflexion Mental Status Examination: awake, alert, oriented to person, oriented to place, oriented to time, follows commands appropriately, answers questions appropriately, no agnosia, no aphasia, no aproxia Cranial nerve examination: PERRL, EOMI, visual bryan intact, corneal reflexes brisk symmetrically, sensory to face intact, mastication intact, no facial asymmetry is present, no dysarthria, hearing is intact symmetrically, soft palate elevates bilaterally upon phonation, gag reflex intact, flexes SCM and trapezius muscles symmetrically with full power, tongue protrudes midline, no atrophy or facial fasiculations present Cerebellar examination: no dysmetria, performs finger to nose and heel to ureña symmetrically without ataxia, no gait ataxia, no truncal ataxia, no difficulty with rapid alternating movements Results - Laboratory Findings CBC and BMP: 09/15/18 03:18 09/15/18 03:18 Abnormal lab findings: Abnormal lab results Hgb 12.6 g/dL (12.9-16.9) L 09/15/18 03:18 ESR 53 mm/hr (0-10) H 09/14/18 10:35 Chloride 108 mEq/L (98-107) H 09/15/18 03:18 BUN 5 mg/dL (6-20) L 09/15/18 03:18 Creatinine 0.66 mg/dL (0.70-1.30) L 09/15/18 03:18 Glucose 147 mg/dL (70-105) H 09/15/18 03:18 AST 12 Units/L (13-39) L 09/14/18 10:22 Alkaline Phosphatase 126 Units/L (34-104) H 09/14/18 10:22 C-Reactive Protein 47 mg/L (Less than 10) H 09/14/18 10:22 Salicylates < 2.5 mg/dL (15.0-30.0) L 09/14/18 10:22 Acetaminophen < 10 mcg/mL (10-20) L 09/14/18 10:22 Ur Amphetamines Screen Positive ng/mL ([id number]=[id number]) H 09/15/18 06:10 Consult Discharge Plan - Plan Referrals: Jeremias Kiser, PAC [Primary Care Provider] -
[2018-09-15] MEDS: Nicotine 21 MG PATCH.TD24 TD SCH (15:08)
[2018-09-16] MEDS: Piperacillin/Tazobactam 3.375 GM in 0.9 % Sodium Chloride Mini Bag 100 ML IVPB SCH ×3 (00:58→16:32)
[2018-09-16] MEDS: hydrOXYzine pamoate 25 MG CAPSULE PO SCH ×3 (08:27→20:25)
[2018-09-16] MEDS: Gabapentin 400 MG CAPSULE PO SCH ×3 (08:27→20:25)
[2018-09-16] MEDS: Nicotine 21 MG PATCH.TD24 TD SCH (08:28)
[2018-09-16] MEDS ORDERED: Methadone Oral Concentrate 10 MG/ML PO SCH (09:00)
--- NOTE | 2018-09-16 10:37 | Orthopedics Progress Note ---
Date of Encounter: 09/16/18 Time of Encounter: 10:35 - Assessment and Plan (1) Foreign body (FB) in soft tissue Current Visit: Yes Status: Acute Subjective Interval history: S: The patient is resting in bed comfortably with improved pain to the left forearm in left foot. O: Afebrile on the vital signs are stable Improved cellulitis to he left foot. Improved cellulitis to the left volar distal forearm region. Packing was pulled with minimal purulence, wound cleansed, and repacked. Neurovasculrly intact distally to both extremities A: Left elbow region foreign body Left distal forearm abscess Left foot cellulitis improving P: Regarding the foreign body, the patient would like this removed however we will wait an do this on an elective basis after he has cleared his active infections. The volar distal forearm region is improving nicely. The cellulitis of the left foot is also improving nicely. My recommendation is for local wound care with daily dressing and packing changes to the left distal volar forearm region. He is orthopedically stable for discharge. I did discuss the local wound care with the patient which he will do on his own. Follow-up in the office with me in 1 week for a repeat evaluation clinically as well as to discuss foreign body excision. Objective Vital signs: Vital Signs Temp Pulse Resp BP Pulse Ox 09/16/18 07:56 98.1 F 88 16 135/87 97 09/16/18 03:05 97.6 F 89 16 118/65 95 09/15/18 23:19 98.3 F 89 16 146/80 95 09/15/18 20:39 98.4 F 92 16 120/72 98 09/15/18 15:17 98.2 F 85 18 157/67 96 09/15/18 11:58 98.6 F 73 18 124/73 94 Intake and Output 09/15/18 09/16/18 09/16/18 23:59 07:59 15:59 Intake Total 100 / 100 100 / 100 1000 / 1000 Output Total 400 / 400 0 / 0 Balance -300 / -300 100 / 100 1000 / 1000 Intake: IV Fluids 100 / 100 100 / 100 Zosyn 3.375 GM In 0.9 % Sodium 100 / 100 100 / 100 Chloride (Mini-Bag +) 100 ML @ 25 mls/hr IVPB Q8HR [facility] Rx#: [id number] Oral 1000 / 1000 Output: Urine 400 / 400 0 / 0 Other: Meal Breakfast Percent of Meal Consumed 100% # Voids 1 Weight 91.6 kg Patient Weight 09/16/18 23:59 Weight 91.6 kg - Labs CBC & BMP: 09/15/18 03:18 09/15/18 03:18 Labs: Abnormal lab results Hgb 12.6 g/dL (12.9-16.9) L 09/15/18 03:18 ESR 53 mm/hr (0-10) H 09/14/18 10:35 Chloride 108 mEq/L (98-107) H 09/15/18 03:18 BUN 5 mg/dL (6-20) L 09/15/18 03:18 Creatinine 0.66 mg/dL (0.70-1.30) L 09/15/18 03:18 Glucose 147 mg/dL (70-105) H 09/15/18 03:18 AST 12 Units/L (13-39) L 09/14/18 10:22 Alkaline Phosphatase 126 Units/L (34-104) H 09/14/18 10:22 C-Reactive Protein 47 mg/L (Less than 10) H 09/14/18 10:22 Salicylates < 2.5 mg/dL (15.0-30.0) L 09/14/18 10:22 Acetaminophen < 10 mcg/mL (10-20) L 09/14/18 10:22 Ur Amphetamines Screen Positive ng/mL (Asookl=[id number]) H 09/15/18 06:10 Consult Discharge Plan - Plan Referrals: Jeremias Kiser, PAC [Primary Care Provider] -
--- NOTE | 2018-09-16 11:12 | Internal Med Progress Note ---
Hospitalist Progress Note - Encounter Date of Encounter: 09/16/18 Time of Encounter: 11:00 - Exam Vitals: Temp Pulse Resp BP Pulse Ox 98.1 F 88 16 135/87 97 09/16/18 07:56 09/16/18 07:56 09/16/18 07:56 09/16/18 07:56 09/16/18 07:56 Exam: Gen - Awake, alert, oriented x 3, no acute distress HEENT - NCAT, PERRLA, EOMI, hearing grossly intact, oropharynx benign CV - RRR, normal S1 and S2, no M/R/G, no BLE edema Resp - Normal WOB, CTAB, no W/R/R GI - Soft, NT/ND, no masses, normal bowel sounds, Skin - Warm, dry, foot cellulitis Psych - Normal mood and affect, no depression or anxiety - Assessment and Plan (1) Seizure Current Visit: Yes Status: Acute Assessment and Plan: Acute witnessed seizure. Has multiple admissions for drug withdrawal seizures. Not currently on any antiepileptics. Neuro consulted and appreciate recs Plan t obatin EEG and MRI. MRI to be completed in am due to needle in elbow and will need MRI machine which is only available on week days (2) Cellulitis Current Visit: Yes Status: Acute Assessment and Plan: Continue on vanc and zsoyn. Follow blood cultures Pt also has retained needle in left elbow. Ortho consulted and appreciate recs (3) Abscess Current Visit: Yes Status: Acute Assessment and Plan: Left forearm abscess s/p incision and drainage by ortho. Continue IV antibiotics (4) Foreign body (FB) in soft tissue Current Visit: Yes Status: Acute Assessment and Plan: Pt also has retained needle in left elbow. Ortho consulted and plan to extract needle as an outpatient (5) Drug abuse and dependence Current Visit: Yes Status: Chronic Assessment and Plan: Counseled. Says he plans to go to drug rehab in [place] (6) DVT prophylaxis Current Visit: Yes Status: Acute Assessment and Plan: Heparin sc - Time Spent with Patient Total time spent is greater than 50% in coordination of care (as documented) at patient's floor/unit and/or counseling patient: Internal Medicine: Result - Labs CBC & Chem 7: 09/15/18 03:18 09/15/18 03:18 Consult Discharge Plan - Plan Referrals: Jeremias Kiser, PAC [Primary Care Provider] - (2) Cellulitis Qualifiers: Site of cellulitis: extremity Site of cellulitis of extremity: upper extremity Laterality: left Qualified Code(s): L03.114 - Cellulitis of left upper limb
--- NOTE | 2018-09-16 14:24 | Neurology Progress Note ---
Date of Encounter: 09/16/18 Time of Encounter: 14:22 Assessment and Plan (1) Spell of altered consciousness Current Visit: Yes Status: Acute Again, it is possible that the patient has experienced seizure activity however I am not convinced that his seizures are not due to symptomatic causes associated with his drug abuse and perhaps withdrawal. Not convinced that he has idiopathic epilepsy. In any regard I would like to obtain an MRI scan of his brain as well as EEG. Further recommendations will be made pending the outcome of these tests. Subjective Interval history: The chart was reviewed, the patient was seen and examined. No further episodes of seizure-like activity. Neurologic examination is stable and unchanged. Currently patient has no complaints, and is in no acute distress. Objective - Constitutional Vitals: Temp Pulse Resp BP Pulse Ox 97.9 F 96 16 134/79 94 09/16/18 11:14 09/16/18 11:14 09/16/18 11:14 09/16/18 11:14 09/16/18 11:14 - Neurological Exam Motor Examination: Present: full strength in all major muscle groups Motor examination - right side: 5/5: deltoids, biceps, triceps, biomass technician, hip flexors, tibialis Anterior, quadriceps, toe extension (EHL), plantarflexion Motor examination - left side: 5/5: deltoids, biceps, triceps, hip flexors, biomass technician, quadriceps, tibialis Anterior, toe extension (EHL), plantarflexion Sensation intact: Present: intact Reflex and gait examination: intact Mental Status Examination: Present: awake, alert, oriented to person, oriented to place, oriented to time, follows commands appropriately, answers questions appropriately, no agnosia, no aphasia, no aproxia Cranial nerve examination: Present: PERRL, EOMI, visual bryan intact, corneal reflexes brisk symmetrically, sensory to face intact, mastication intact, no facial asymmetry is present, no dysarthria, hearing is intact symmetrically, soft palate elevates bilaterally upon phonation, gag reflex intact, flexes SCM and trapezius muscles symmetrically with full power, tongue protrudes midline, no atrophy or facial fasiculations present Cerebellar examination: Present: no dysmetria, performs finger to nose and heel to ureña symmetrically without ataxia, no gait ataxia, no truncal ataxia, no difficulty with rapid alternating movements Results - Laboratory Findings CBC and BMP: 09/15/18 03:18 09/15/18 03:18 Abnormal lab findings: Abnormal lab results Hgb 12.6 g/dL (12.9-16.9) L 09/15/18 03:18 ESR 53 mm/hr (0-10) H 09/14/18 10:35 Chloride 108 mEq/L (98-107) H 09/15/18 03:18 BUN 5 mg/dL (6-20) L 09/15/18 03:18 Creatinine 0.66 mg/dL (0.70-1.30) L 09/15/18 03:18 Glucose 147 mg/dL (70-105) H 09/15/18 03:18 AST 12 Units/L (13-39) L 09/14/18 10:22 Alkaline Phosphatase 126 Units/L (34-104) H 09/14/18 10:22 C-Reactive Protein 47 mg/L (Less than 10) H 09/14/18 10:22 Salicylates < 2.5 mg/dL (15.0-30.0) L 09/14/18 10:22 Acetaminophen < 10 mcg/mL (10-20) L 09/14/18 10:22 Ur Amphetamines Screen Positive ng/mL (Ddvthb=4140) H 09/15/18 06:10 Consult Discharge Plan - Plan Referrals: Jeremias Kiser, PAC [Primary Care Provider] -
[2018-09-16] MEDS ORDERED: Aminoglycoside Consult 1 EACH MC ONE (16:49)
[2018-09-16] MEDS ORDERED: Acetaminophen IV 1,000 MG/100 ML INFUS..BTL IVPB ONE (23:22)
[2018-09-17] MEDS: Piperacillin/Tazobactam 3.375 GM in 0.9 % Sodium Chloride Mini Bag 100 ML IVPB SCH ×2 (01:20→08:23)
[2018-09-17 06:57] VITALS: BP 147/72
[2018-09-17] MEDS: Gabapentin 400 MG CAPSULE PO SCH (08:23)
[2018-09-17] MEDS: Nicotine 21 MG PATCH.TD24 TD SCH (08:23)
[2018-09-17] MEDS: hydrOXYzine pamoate 25 MG CAPSULE PO SCH (08:23)
[2018-09-17] MEDS ORDERED: *HR* Methadone 10 MG TABLET PO SCH (10:15)
--- NOTE | 2018-09-17 10:43 | Discharge Summary ---
Orders not resulted at time of discharge: Pending orders 09/14/18 10:35 Culture,Blood [BC] Stat 09/15/18 11:55 Culture,Anaerobic [RM] Routine Culture,Wound [RM] Routine 09/15/18 13:22 MR head/brain wo con [MR] Routine 09/17/18 13:00 Vancomycin,Trough Timed Date of Encounter: 09/17/18 Time of Encounter: 10:35 - Discharge Diagnosis (1) Seizure Priority: Primary Status: Acute Assessment and Plan: 28 year old male with pmh of polysubstance abuse with Iv drugs, currently in a recovery program on methadone, seizures presenting with complaints of I had a seizure today and I have had redness and pain of my left foot. Patient admits to seizures in the past when he hasn't taken his methadone, but says he took his methadone. He was having a conversation with a neighbor and the next thing he remembers is waking up on the floor. Per the neighbor, he had facial twitching and fell to the ground and hit the right side of his face. Denies any tongue biting or unrinary incontinence or fevers or chills. He also admits to having relapsed and been injecting IV drugs in his foot and arm. He complains of tenderness over the left foot and has had redness and swelling. he also has redness over the left forearm. He was assessed with cellulitis and likely acute witnessed seizure. Has multiple admissions for drug withdrawal seizures. Neuro consulted and recommend a seizure workup to include MRI and EEG. MRI came back WNL. EEG also came back WNL and neuro cleared him for discharge For his foot and left forearm cellulitis, these improved with IV antibiotics. he was seen by ortho and had an incision and drainage of his left forearm cellulitis/ abscess. he tolerated procedure well. He is also noted to have a needle in his left elbow which ortho plan to surgically remove as an outpatient. Will be discharged to complete a 5 day course of augmentin (2) Cellulitis Priority: Primary Status: Acute Qualifiers: Site of cellulitis: extremity Site of cellulitis of extremity: upper extremity Laterality: left Qualified Code(s): L03.114 - Cellulitis of left upper limb (3) Abscess Priority: Primary Status: Acute (4) Foreign body (FB) in soft tissue Priority: Primary Status: Acute (5) Drug abuse and dependence Priority: Primary Status: Chronic (6) DVT prophylaxis Priority: Primary Status: Acute Hospital course: Mr. Morrell is a 28 year old male - Time Spent with Patient Total time spent providing and/or coordinating discharge services: - Discharge Medications Prescriptions: Amoxicillin/Clavulanate [Augmentin] 875 mg PO BIDWM 5 Days #10 tablet Nicotine Patch [Nicoderm] 21 mg TD DAILY 30 Days #30 patch.td24 Home Medications: Gabapentin [Neurontin] 800 mg PO QID 11/23/17 [History] Methadone Oral Concentrate [Methadone] 110 mg PO DAILY 09/14/18 [History] Amoxicillin/Clavulanate [Augmentin] 875 mg PO BIDWM 5 Days #10 tablet 09/17/18 [Rx] Nicotine Patch [Nicoderm] 21 mg TD DAILY 30 Days #30 patch.td24 09/17/18 [Rx] Allergies/Adverse Reactions: Allergy/AdvReac Type Severity Reaction Status Date / Time ketorolac [From Toradol] Allergy Rash Verified 09/17/18 14:47 Date of admission: 09/14/18 13:36 Primary care physician: Jeremias Kiser Consults: 09/14/18 13:55 Consult to Orthopedic Surgery [CONS] Routine Consulting Provider: Orthopedic and Sports Medicine Reason for Consult: retained needle in elbow Call Completed: Yes 09/14/18 14:24 Consult to Neurology [CONS] Routine Consulting Provider: Neurology [facility] Reason for Consult: seizure Call Completed: Yes - Constitutional Vitals: Temp Pulse Resp BP Pulse Ox 98.4 F 88 14 147/72 97 09/17/18 06:55 09/17/18 06:55 09/17/18 06:55 09/17/18 06:55 09/17/18 06:55 Exam: Gen - Awake, alert, oriented x 3, no acute distress HEENT - NCAT, PERRLA, EOMI, hearing grossly intact, oropharynx benign CV - RRR, normal S1 and S2, no M/R/G, no BLE edema Resp - Normal WOB, CTAB, no W/R/R GI - Soft, NT/ND, no masses, normal bowel sounds, Skin - Warm, dry, foot cellulitis Psych - Normal mood and affect, no depression or anxiety - Patient Status Disposition: Home, Self-Care Condition: Good - Discharge Instructions Follow Up With: Jeremias Kiser, PAC [Primary Care Provider] -
--- NOTE | 2018-09-17 15:22 | EEG/EMG/Oth Biometrics Report ---
EEG Procedure Report EEG Procedure: Routine EEG Procedure Note: This is a report of a 21 channel bipolar and referential montage EEG. The study starts off with the patient drowsy and then and stage II sleep as reference by dropout of posterior dominant rhythm and emergence of vertex activity K complexes and sleep spindles. His persist throughout much of the recording. Occasional the posterior dominant rhythm gets up to 6-7 Hz for short while. The pain gets up to about 10 Hz which is a normal waking rhythm, and then goes back into drowsiness and stage II sleep. Hyperventilation performed and results in no significant change in the recording. . Photic stimulation does not produce a driving response. The EKG rhythm strip reveals normal sinus rhythm at 96 bpm. Impressions: This EEG recording is reflective of normal drowsiness and stage II sleep. There is no evidence of epileptiform activity identified during the study. Comment: A normal EEG does not preclude a diagnosis of seizure or epilepsy. If the clinical suspicion for seizure activity is high, serial EEGs or perhaps a prolonged recording may increase the yield. Please correlate clinically.
--- NOTE | 2018-09-17 15:57 | Neurology Progress Note ---
Date of Encounter: 09/17/18 Time of Encounter: 15:54 Assessment and Plan (1) Spell of altered consciousness Current Visit: Yes Status: Acute It is my suspicion that the patient has experienced an episode of symptomatic seizure secondary to the amphetamines. I am not convinced that he has idiopathic epilepsy. This juncture one can only open the appropriate lifestyle changes will be implemented. I am not compelled to start him on antiepileptic therapy. MRI and EEG were negative. You may discharge him at your discretion to follow up with his primary care providers. Subjective Interval history: The chart was reviewed, patient was seen and examined. He has had no further seizure activity since admission. However since being admitted with identified that his urine tox screen was positive for amphetamines. MRI scan revealed no evidence of mesial temporal sclerosis or other abnormality that would be expected to result in seizures or epilepsy. EEG revealed normal drowsiness. No seizure activity was identified. Currently he is alert and back to his normal baseline. 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, hip flexors, tibialis Anterior, quadriceps, toe extension (EHL), plantarflexion Motor examination - left side: 5/5: deltoids, biceps, triceps, hip flexors, marine radio installer and servicer, quadriceps, tibialis Anterior, toe extension (EHL), plantarflexion Sensation intact: Present: intact Reflex and gait examination: intact Mental Status Examination: Present: awake, alert, oriented to person, oriented to place, oriented to time, follows commands appropriately, answers questions appropriately, no agnosia, no aphasia, no aproxia Cranial nerve examination: Present: PERRL, EOMI, visual bryan intact, corneal reflexes brisk symmetrically, sensory to face intact, mastication intact, no facial asymmetry is present, no dysarthria, hearing is intact symmetrically, soft palate elevates bilaterally upon phonation, gag reflex intact, flexes SCM and trapezius muscles symmetrically with full power, tongue protrudes midline, no atrophy or facial fasiculations present Cerebellar examination: Present: no dysmetria, performs finger to nose and heel to ureña symmetrically without ataxia, no gait ataxia, no truncal ataxia, no difficulty with rapid alternating movements Results - Laboratory Findings CBC and BMP: 09/15/18 03:18 09/15/18 03:18 Abnormal lab findings: Abnormal lab results Hgb 12.6 g/dL (12.9-16.9) L 09/15/18 03:18 ESR 53 mm/hr (0-10) H 09/14/18 10:35 Chloride 108 mEq/L (98-107) H 09/15/18 03:18 BUN 5 mg/dL (6-20) L 09/15/18 03:18 Creatinine 0.66 mg/dL (0.70-1.30) L 09/15/18 03:18 Glucose 147 mg/dL (70-105) H 09/15/18 03:18 AST 12 Units/L (13-39) L 09/14/18 10:22 Alkaline Phosphatase 126 Units/L (34-104) H 09/14/18 10:22 C-Reactive Protein 47 mg/L (Less than 10) H 09/14/18 10:22 Salicylates < 2.5 mg/dL (15.0-30.0) L 09/14/18 10:22 Acetaminophen < 10 mcg/mL (10-20) L 09/14/18 10:22 Ur Amphetamines Screen Positive ng/mL ([id number]) H 09/15/18 06:10 Consult Discharge Plan - Plan Referrals: Jeremias Kiser, PAC [Primary Care Provider] - Prescriptions: Amoxicillin/Clavulanate [Augmentin] 875 mg PO BIDWM 5 Days #10 tablet Nicotine Patch [Nicoderm] 21 mg TD DAILY 30 Days #30 patch.td24
== END 2018-09-17 16:50 | disposition home or self-care (01) ==
LOC: 3BNU 10:06 → EMEROOARM 10:06 → 3BNU 14:28
PROVIDERS: ADMIT Internal Medicine Nephrology; ATTEND Internal Medicine Nephrology

== ENCOUNTER 2018-12-17 08:08 | Observation (INO) ==
[2018-12-17] MEDS ORDERED: 0.9 % Sodium Chloride 1,000 ML IVC ONE (08:21)
--- NOTE | 2018-12-17 08:31 | Emergency Department Note ---
Disposition Clinical Impression: Altered mental status Qualifiers: Altered mental status type: unspecified Qualified Code(s): R41.82 - Altered mental status, unspecified Disposition: Admitted As Inpatient Condition: Good Time of Disposition: 10:49 General Adult HPI - General Chief complaint: ED Seizure Stated complaint: seizure Time Seen by Provider: 12/17/18 08:20 Source: EMS Nursing Notes Reviewed: Yes Vital Signs Reviewed: Yes - History of Present Illness HPI Narrative: Patient is a 28-year-old male presenting to [facility] ED after a syncopal episode this morning while at home. Patient states that he took his prescribed methadone this morning and was on the toilet having a bowel movement when he believes he lost consciousness. Patient denies striking his head or any pain in his neck at this time. Patient has a known past history of IV drug use, the patient denies any drug use this morning. Upon initial exam patient is lying in hospital bed and covering his eyes with his hands. Patient is awake, alert, he is answering questions appropriately but is only minimally cooperative to questioning, he is otherwise answering questions appropriately, there appear to be no overt focal neurological deficits, he is in no acute distress. Patient denies other past medical/surgical history denies any other medications other than methadone at t his time. Patient admits to frontal headache, he denies neck or back pain, chest pain/shortness of breath, abdominal pain, pain in extremities, or paresthesias. Patient admits to losing control of his bladder this event. Patient currently is malodorous with strong smell of marijuana. 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 Review of Systems: As Per HPI Past Medical History - Past Medical History Medical history: Reports: seizures, other Surgical history: Reports: no surgical history, other Psychiatric history: Reports: anxiety - Social History Smoking Status: Current every day smoker Smokeless Tobacco Status: No Alcohol use: Reports: occasionally Drug use: Reports: opiates, methamphetamine, IV Drug Use Physical Exam - General Limitations: no limitations General appearance: alert, in no apparent distress, lethargic - Head Head exam: atraumatic, normocephalic, normal inspection - Eye Eye exam: Present: PERRL, EOMI, miosis. Absent: scleral icterus - Neck Neck exam: Present: normal inspection, trachea midline - Chest Chest inspection: Present: normal inspection, symmetric chest wall rise - Respiratory Respiratory exam: Present: normal lung sounds bilaterally, respiratory distress. Absent: wheezes, stridor, accessory muscle use, prolonged expiratory phase - Cardiovascular Cardiovascular exam: Present: regular rate, normal rhythm, normal heart sounds, +S1, +S2. Absent: systolic murmur, diastolic murmur, JVD, +S3, +S4 - Abdominal Exam Abdominal exam: Present: soft, Non-Tender, normal bowel sounds. Absent: tenderness, distention, guarding, rebound, rigidity - Extremities Exam Extremities exam: Present: normal inspection, other (Radial dorsalis pedis pulses are intact and strong.). Absent: pedal edema - Neurological Exam Neurological exam: Present: alert - Psychiatric Psychiatric exam: Present: flat affect - Skin Skin exam: Present: warm, dry, intact, normal color. Absent: rash, cyanosis, diaphoresis, erythema, pallor, mottled Course Course Narrative: CBC, BMP, POC glucose, urinalysis, EKG/old EKG, CT of the head and neck will be performed in order to further assess for potential underlying pathology. Patient will receive 1 L IV fluid bolus at this time. - Reevaluation(s) Reevaluation #1: Upon reevaluation patient is providing inconsistent histories of this morning events. Patient states that he was not in the bathroom and that he did not take his methadone this morning - this is in contradiction to earlier history upon initial presentation. Spoke with Dr. Young in neurology who recommended admission for MRI and EEG. Patient will be admitted to hospital medicine for further evaluation and management. Time: 10:57 Vital Signs Temperature 99.2 F 12/17/18 08:09 Pulse Rate 104 12/17/18 08:09 Respiratory Rate 15 12/17/18 08:09 Blood Pressure 134/70 12/17/18 08:09 O2 Sat by Pulse Oximetry 99 12/17/18 08:09 Temperature 98.6 F 12/18/18 11:45 Pulse Rate 89 12/18/18 11:45 Respiratory Rate 18 12/18/18 11:45 Blood Pressure 115/62 12/18/18 11:45 O2 Sat by Pulse Oximetry 97 12/18/18 11:45 Oxygen Delivery Oxygen Delivery Room Air Medical Decision Making - Lab Data Lab results reviewed: Yes I reviewed the patient's lab results. Result diagrams: 12/18/18 04:49 12/18/18 04:49 Lab Results 12/17/18 12/17/18 12/17/18 Range/Units 08:15 08:45 08:45 WBC (4.3-11.1) K/mcL RBC (4.19-5.50) M/mcL Hgb (12.9-16.9) g/dL Hct (37.5-50.1) % MCV (83.0-100.0) fL MCH (28.0-33.3) pg MCHC (31.6-35.5) g/dL RDW (11.5-14.5) % Plt Count (140-400) K/mcL MPV (9.4-12.4) fL Immature Gran % (0-4) % Seg Neutrophils % % Lymphocytes % % Monocytes % % Eosinophils % % Basophils % % Neutrophils # (1.6-8.9) K/mcL Lymphocytes # (0.6-4.6) K/mcL Monocytes # (0.0-1.3) K/mcL Eosinophils # (0.0-0.6) K/mcL Basophils # (0.0-0.2) K/mcL Sodium (136-145) mEq/L Potassium (3.5-5.1) mEq/L Chloride (98-107) mEq/L Carbon Dioxide (23-29) mEq/L BUN (6-20) mg/dL Creatinine (0.70-1.30) mg/dL Est GFR ( Amer) (> 60) Est GFR (Non-Af Amer) (> 60) BUN/Creatinine Ratio (6-26) Glucose (70-105) mg/dL POC Glucose 149 H (70-99) mg/dL Calculated Osmolality (280-300) Calcium (8.6-10.3) mg/dL Troponin I (< 0.04) ng/mL Urine Color Yellow (Yellow) Urine Clarity Cloudy A (Clear) Urine pH 6.0 (5.0-8.0) pH Units Ur Specific [place] 1.023 (1.010-1.025) Urine Protein 100 H (Neg-Trace) mg/dL Urine Glucose (UA) Normal (Normal) mg/dL Urine Ketones Negative (Negative) mg/dL Urine Blood Negative (Negative) Urine Nitrite Negative (Negative) Urine Bilirubin Negative (Negative) Urine Urobilinogen Normal (Normal) mg/dL Ur Leukocyte Esterase Negative (Negative) Urine Microscopic RBC 0-3 (0-3) per hpf Urine Microscopic WBC 30-50 H (0-3) per hpf Ur Squamous Epith Cells Many H (None-Few) per lpf Urine Bacteria None Seen (None-Few) per hpf Hyaline Casts Few (None-Few) per lpf Urine Sperm Present Urine Opiates Screen Negative (Olkbyh=592) ng/mL Ur Barbiturates Screen Negative (Eumecm=639) ng/mL Ur Phencyclidine Scrn Negative (Cutoff=25) ng/mL Ur Amphetamines Screen Positive H (Wimefs=1862) ng/mL U Benzodiazepines Scrn Negative (Mqigzs=639) ng/mL Urine Cocaine Screen Positive H (Cutoff= 300) ng/mL U Marijuana (THC) Screen Negative (Cutoff = 50) ng/mL Ur Drug Screen Interp See Below 12/17/18 12/17/18 Range/Units 08:52 08:52 WBC 11.1 (4.3-11.1) K/mcL RBC 5.59 H (4.19-5.50) M/mcL Hgb 15.9 (12.9-16.9) g/dL Hct 47.7 (37.5-50.1) % MCV 85.3 (83.0-100.0) fL MCH 28.4 (28.0-33.3) pg MCHC 33.3 (31.6-35.5) g/dL RDW 13.0 (11.5-14.5) % Plt Count 300 (140-400) K/mcL MPV 9.8 (9.4-12.4) fL Immature Gran % 0.3 (0-4) % Seg Neutrophils % 88.5 % Lymphocytes % 7.0 % Monocytes % 4.0 % Eosinophils % 0.1 % Basophils % 0.1 % Neutrophils # 9.8 H (1.6-8.9) K/mcL Lymphocytes # 0.8 (0.6-4.6) K/mcL Monocytes # 0.4 (0.0-1.3) K/mcL Eosinophils # 0.0 (0.0-0.6) K/mcL Basophils # 0.0 (0.0-0.2) K/mcL Sodium 140 (136-145) mEq/L Potassium 3.8 (3.5-5.1) mEq/L Chloride 106 (98-107) mEq/L Carbon Dioxide 26 (23-29) mEq/L BUN 8 (6-20) mg/dL Creatinine 0.96 (0.70-1.30) mg/dL Est GFR ( Amer) > 60 (> 60) Est GFR (Non-Af Amer) > 60 (> 60) BUN/Creatinine Ratio 8 (6-26) Glucose 120 H (70-105) mg/dL POC Glucose (70-99) mg/dL Calculated Osmolality 290 (280-300) Calcium 10.2 (8.6-10.3) mg/dL Troponin I < 0.03 (< 0.04) ng/mL Urine Color (Yellow) Urine Clarity (Clear) Urine pH (5.0-8.0) pH Units Ur Specific [place] (1.010-1.025) Urine Protein (Neg-Trace) mg/dL Urine Glucose (UA) (Normal) mg/dL Urine Ketones (Negative) mg/dL Urine Blood (Negative) Urine Nitrite (Negative) Urine Bilirubin (Negative) Urine Urobilinogen (Normal) mg/dL Ur Leukocyte Esterase (Negative) Urine Microscopic RBC (0-3) per hpf Urine Microscopic WBC (0-3) per hpf Ur Squamous Epith Cells (None-Few) per lpf Urine Bacteria (None-Few) per hpf Hyaline Casts (None-Few) per lpf Urine Sperm Urine Opiates Screen (Qplsgb=759) ng/mL Ur Barbiturates Screen (Kzouci=479) ng/mL Ur Phencyclidine Scrn (Cutoff=25) ng/mL Ur Amphetamines Screen (Xxppdf=4156) ng/mL U Benzodiazepines Scrn (Bkynft=014) ng/mL Urine Cocaine Screen (Cutoff= 300) ng/mL U Marijuana (THC) Screen (Cutoff = 50) ng/mL Ur Drug Screen Interp - EKG Data EKG #1 EKG attestation: Yes I reviewed and interpreted this EKG. EKG results narrative: Patient EKG shows sinus tachycardia with a heart rate of 104 bpm, OH interval of 123 ms, QRS duration of 75 ms, QT/QTc interval of 336/442 ms respectively. There is slight less than [address] segment elevation noted in lead 3 which is isolated to that lead with no reciprocal change and appears consistent with prior EKG. There are no significant ST segment elevations, depressions, pathologic Q waves, abnormal T-wave inversions, or any other signs of acute ischemic change. EKG performed today is generally consistent with prior EKG performed on 12/08/2018. EKG shows normal: sinus rhythm Attestation Statement - Attestation Attestation: I, Ariel Painting, examined this patient and my medical decision-making was reviewed with the HOUSING SPECIALIST/PA/Advanced Practice Nurse/Resident Physician. I agree with the documented findings, disposition and treatment plan as described except to the extent set forth below. 28-year-old male presents emergency Department with concerns of episode of unconsciousness. Patient was brought in by EMS after he was found unconscious in the bathroom. Patient initially had difficulty giving a history and he varied his history throughout his stay in the emergency department. A long history of IV drug use. Patient uses methadone to treat his opiate addiction. Is unclear whether or not the patient took his methadone this morning prior to the incident. Patient states he walked back, had a bowel movement and then lost consciousness. He was also incontinent of urine and stool. He did not bite his tongue. He states he has a history of seizures but is not treated for them. EMS stated patient had a postictal period. It is unclear whether or not this is syncopal episode versus seizure. I spoke with the neurologist, Dr. Young who recommended patient be admitted to the hospital for MRI and EEG. Patient was comfortable with this plan of action.
[2018-12-17 08:57] LABS: Bilirubin,Urine Negative (Negative); Blood,Urine Negative (Negative); Clarity,Urine Cloudy (Clear); Color,Urine Yellow (Yellow); Glucose,Urine (UA) Normal (Normal); Ketones,Urine Negative (Negative); Leukocyte Esterase,Urine Negative (Negative); Nitrite,Urine Negative (Negative); Protein,Urine 100 mg/dL (Neg-Trace); Specific Gravity,Urine 1.023 (1.010-1.025); Urobilinogen,Urine Normal (Normal)
[2018-12-17 09:00] LABS: Bacteria,Urine None Seen per hpf (None-Few); Hyaline Casts,Urine Few per lpf (None-Few); RBC,Urine 0-3 per hpf (0-3); Squamous Epithelial Cell,Urine Many per lpf (None-Few); WBC,Urine 30-50 per hpf (0-3)
[2018-12-17 09:02] LABS: Basophils % 0.1 %; Eosinophils % 0.1 %; Hematocrit 47.7 % (37.5-50.1); Hemoglobin 15.9 g/dL (12.9-16.9); Immature Granulocytes % 0.3 % (0-4); Lymphocytes # 0.8 K/mcL (0.6-4.6); Mean Corpuscular HGB Conc 33.3 g/dL (31.6-35.5); Mean Corpuscular Hemoglobin 28.4 pg (28.0-33.3); Mean Corpuscular Volume 85.3 fL (83.0-100.0); Mean Platelet Volume 9.8 fL (9.4-12.4); Monocytes # 0.4 K/mcL (0.0-1.3); Neutrophils # 9.8 K/mcL (1.6-8.9); Platelet Count 300 K/mcL (140-400); Red Blood Count 5.59 M/mcL (4.19-5.50); Segmented Neutrophils % 88.5 %
[2018-12-17 09:15] LABS: Sperm,Urine Present
[2018-12-17 09:21] LABS: BUN/Creatinine Ratio 8 (6-26); Blood Urea Nitrogen 8 mg/dL (6-20); Calcium 10.2 mg/dL (8.6-10.3); Carbon Dioxide 26 mEq/L (23-29); Chloride 106 mEq/L (98-107); Glucose 120 mg/dL (70-105); Osmolality,Calculated 290 (280-300); Potassium 3.8 mEq/L (3.5-5.1); Sodium 140 mEq/L (136-145); eGFR For Non-African Americans > 60 (> 60)
[2018-12-17 09:28] LABS: Troponin I < 0.03 ng/mL (< 0.04)
[2018-12-17] MEDS ORDERED: Ketorolac 15 MG/ML VIAL IVP ONE (10:03)
[2018-12-17] MEDS ORDERED: Naloxone 0.4 MG/ML INJ IVP PRN (11:14)
[2018-12-17] MEDS ORDERED: *HR* LORazepam 2 MG/ML VIAL IVP PRN ×3 (11:16→16:35)
[2018-12-17] MEDS ORDERED: Metoclopramide 10 MG/2 ML VIAL IVP ONE (11:47)
--- NOTE | 2018-12-17 12:38 | Internal Med History&Physical ---
Date of Encounter: 12/17/18 Time of Encounter: 12:32 Internal Medicine - H&P: HPI Chief complaint: Seizures Admitted From: Home Plans for Post Hospital Care: Home History of present illness: Mr. Morrell is a 28 year old male PMH of IVDU, on methadone, and seizures. Patient was brought to the ED following and unwitnessed seizure. Patient reports taking 15 Gabapentin pills this morning with an intent of getting high, and the last thing he remembered is his brother waking him up from the floor at home. He reports that he was out for about 10 minutes and after he recover consciousness as per EMS and ER note the patient had urinary incontinence. He denies having any auras before the seizure as he normally does before having a seizure episode. He reports before a seizure he becomes nauseous, lightheaded/dizzy. Reports just taking gabapentin for seizures. Admits having a seizure about a month ago. Also reports doing IV meth about a month ago as well. Denies fever, chills, nausea or vomiting. Report a headache following the seizure. Past Med Surg Social Fam HX - Past Medical History Medical history: seizures, other Additional medical history: Hepatitis C Psychiatric history: anxiety - Past Surgical History Surgical History: no surgical history, other Additional surgical history: left hand surgery - Social History Smoking Status: Current every day smoker Smokeless Tobacco Status: No Alcohol use: occasionally Drug use: opiates, methamphetamine, IV Drug Use - Family History Mother Living Status: Still Living Hx Family Cardiac Disorders: No Hx Family Respiratory Disorders: No Hx Family Cancer: No Hx Family GI Disorders: No Hx Family Endocrine Disorder: No Hx Family Neuromuscular Disorders: No Hx Family Neurologic Disorders: No Hx Family HEENT Disorders: No Hx Family Autoimmune Disorders: No Father Living Status: Still Living Hx Family Cardiac Disorders: No Hx Family Respiratory Disorders: Yes (COPD) Hx Family Cancer: No Hx Family GI Disorders: No Hx Family Endocrine Disorder: No Hx Family Neuromuscular Disorders: No Hx Family Neurologic Disorders: No Hx Family HEENT Disorders: No Hx Family Autoimmune Disorders: No Internal Medicine - H&P: Meds Gabapentin [Neurontin] 800 mg PO QID 11/23/17 [History] Methadone Oral Concentrate [Methadone] 110 mg PO DAILY 09/14/18 [History] levETIRAcetam [Roweepra] 500 mg PO BID #60 tablet 01/28/19 [Rx] Allergy/AdvReac Type Severity Reaction Status Date / Time ketorolac [From Toradol] Allergy Rash Verified 09/17/18 14:47 All Systems PM: A 10-system review of systems was performed and is negative for pertinent findings except as documented above in the HPI. - Constitutional Constitutional: no chills, no fever(s), no malaise, no weakness, no weight loss - EENT Eyes: no blurry vision, no floaters, no itchy eyes Nose, mouth and throat: no change in voice - Cardiovascular Cardiovascular ROS IM: no chest pain, no edema, no irregular heart rhythm, no lightheadedness, no orthopnea, no palpitations, no paroxysmal nocturnal dyspnea - Respiratory Respiratory: no cough, no wheezing, no chest congestion - Gastrointestinal Gastrointestinal: no abdominal pain, no nausea, no vomiting - Genitourinary Genitourinary ROS male: no dysuria, no urinary frequency, no urinary hesitancy, no urinary urgency - Musculoskeletal Musculoskeletal ROS IM: no atrophy - Integumentary Integumentary IM: no rash - Neurological Neurological ROS: no headache(s) - Psychiatric Psychiatric: no anxiety, no homicidal ideation, no hopelessness, no irritability, no suicidal ideation - Endocrine Endocrine IM: no polydipsia, no polyphagia, no polyuria - Hematologic/Lymphatic Hematologic/Lymphatic: no easy bruising, no lymphadenopathy - Allergic/Immunologic Allergic/Immunologic: no GI upset with certain foods Additional comments: rest of a 10 review of system negative. - Constitutional Vitals: Temp Pulse Resp BP Pulse Ox 99.2 F 95 18 141/72 100 12/17/18 08:09 12/17/18 11:02 12/17/18 11:02 12/17/18 11:02 12/17/18 11:02 Exam: General: Patient is alert, oriented x3. In mild distress due to headache Head: atraumatic, normocephalic, Eye: normal appearance, PERRL, no scleral icterus, no conjunctival injection ENT: mucous membranes moist, normal external ear exam Neck: normal inspection, trachea midline, full ROM, no carotid bruits Respiratory: Good respiratory effort. Clear to auscultation bilaterally, no wheezing rales or crackles. Cardiovascular: RRR, normal s1 and s2, no clicks, rubs, gallops, or murmors. Abdomen: Bowel sounds present normoactive x-4 quadrants. Abdomen is soft, n ondistended. No guarding or rebound. No organomegaly noted. Musculoskeletal: Spontaneously moving all extremities. no edema, no calf tenderness Skin: warm, dry, intact. Neuro: Sensation light touch intact. Cranial nerves 2-12 is intact. Not aphasic. Psych: Patient's affect is normal Internal Med - H&P Results - Labs CBC & Chem 7: 12/17/18 08:52 12/17/18 08:52 Labs: Short CBC 12/17/18 Range/Units 08:52 WBC 11.1 (4.3-11.1) K/mcL Hgb 15.9 (12.9-16.9) g/dL Hct 47.7 (37.5-50.1) % Plt Count 300 (140-400) K/mcL Neutrophils # 9.8 H (1.6-8.9) K/mcL BMP 12/17/18 08:52 Sodium 140 Potassium 3.8 Chloride 106 Carbon Dioxide 26 BUN 8 Creatinine 0.96 Glucose 120 H Calcium 10.2 Cardiac Enzymes 12/17/18 Range/Units 08:52 Troponin I < 0.03 (< 0.04) ng/mL Urine 12/17/18 Range/Units 08:45 Urine Color Yellow (Yellow) Urine Clarity Cloudy A (Clear) Urine pH 6.0 (5.0-8.0) pH Units Ur Specific [place] 1.023 (1.010-1.025) Urine Protein 100 H (Neg-Trace) mg/dL Urine Glucose (UA) Normal (Normal) mg/dL - Impressions ITS Impressions Head CT 12/17/18 08:21 IMPRESSION: 1. No acute intracranial abnormality. 2. Acute left maxillary sinusitis. D/ / 12/17/2018 09:59:01 Damion Walters MD / [facility] Interpreting Provider: Damion Walters MD Cervical Spine CT 12/17/18 08:24 IMPRESSION: No acute abnormality of the cervical spine. D/ / Shira Ordonez MD / Shira Ordonez MD Interpreting Provider: Shira Ordonez MD - Diagnostic Studies CT scan - head Status: image reviewed by me (no acute abnormalities. ) - Assessment and plan (1) Seizure Current Visit: No Status: Acute Assessment and plan: Patient brought in for Seizure following ingestion of 16 Gabapentin pills. Plan Neurology has been consulted MRI of the brain ordered started on Keppra 1000mg/IV BID Lorazepam 1mg/IV Q1HR x3 for seizure like activity (2) Opiate addiction Current Visit: No Status: Chronic Assessment and plan: Patient admits doing IV meth about a month ago. Urine drug screen ordered resume Methadone per pharmacy protocol. Qualifiers: Substance use status: in withdrawal Qualified Code(s): F11.23 - Opioid dependence with withdrawal (3) DVT prophylaxis Current Visit: No Status: Acute Assessment and plan: Heparin 5000 units SubQ Q8HRs. - Time Spent With Patient Total time spent is greater than 50% in coordination of care (as documented) at patient's floor/unit and/or counseling patient: Greater than 35 minutes (45)
[2018-12-17 13:55] LABS: Amphetamine Screen,Urine Positive ng/mL (Cutoff=1000); Barbiturate Screen,Urine Negative ng/mL (Cutoff=200); Benzodiazepines Screen,Urine Negative ng/mL (Cutoff=200); Cannabinoid Screen,Urine Negative ng/mL (Cutoff = 50); Cocaine Screen,Urine Positive ng/mL (Cutoff= 300); Opiate Screen,Urine Negative ng/mL (Cutoff=300); Phencyclidine Screen,Urine Negative ng/mL (Cutoff=25)
--- NOTE | 2018-12-17 14:21 | Neurosurgical History&Physical ---
Addendum entered and electronically signed by Idania Calloway MD 12/17/18 19:20: Patient is seen and examined in the presence of Chris Carmichael and case discussed and imaging studies reviewed and i agree with the assessment and plan outlined below. I did talk to the patient's mother who provided additional information regarding this patient's seizure history. He has been evaluated few times in the hospital for witnessed seizures but has never been started on seizure medications. Does have few risk factors for seizure disorder mainly related to substance abuse and may be also medical withdrawal. However, mother relates that this time he was in the bathroom and was in sitting position and had a seizure. She agrees that this was a seizure and that the patient had jerking activity, foaming at the mouth and some blood on the floor likely secondary to hitting his face falling down. No tongue biting or urinary incontinence reported. Mother states that he has had few such seizures all together and she feels that the patient needs seizure medication. So will recommend MRI of brain without contrast and routine EEG. Will keep him on Keppra 500mg bid and he is to follow up in neurology in 2-3 weeks after discharge. Please continue medical and supportive care Original Note: Date of Encounter: 12/17/18 Time of Encounter: 14:18 Assessment and Plan (1) Seizures Current visit: Yes Status: Acute Presented with concern for seizures. He was found unresponsive with AMS and "convulsions" However, at this time it is difficult to ascertain if this is true seizure activity. He does admit to hitting his head on the floor repeatedly but denies any overt tonic/clonic activity. There was no loss of bowel or bladder function and no tongue biting. He did admit to a mild post ictal state with confusion and lethargy. He does not have any h/o childhood seizures, TBI or organic pathology which would explain seizures. His first seizure occurred in 2017 and was thought to be secondary to amphetamine use EEG in 09/06 did not reveal any epileptiform activity. MRI 09/06 with no acute intracranial abnormality. This admission he has a positive UDS with amphetamines and cocaine which may have exacerbated his seizures He does also admit to being in withdrawal from Methadone; he is on daily methadone and his last dose was Monday. Withdrawal seizures is also in the differential. Also of note, he admits to ingesting 16 800mg Gabapentin tablets last evening to help with his withdrawal symptoms. He has not had any return of seizure activity since admission Plan: MRI brain to assess for organic pathology of seizures EEG Agree with starting Keppra Ativan for breakthrough seizures Continue seizure precautions History of Present Illness Chief complaint: seizures HPI: Mr. Morrell is a 28 year old male with a PMH of IVDU, and Hepatitis C and suspected drug induced seizure on prior admissions. He presents today to [facility] for seizures. He was seen in August of 2018 for the same and at that time he had a negative EEG and the seizures were thought to be methamphetamine induced. He reports that his last use of IV methamphetamines was a little less than a week ago. He reports that the details of the events this morning are unclear but does note that he was found down on his bathroom floor with altered mental status and was having a seizure. The patient reported that he was told that his head was "shaking and banging on and off the floor" but he personally has not recollection of this occurring and does not know how long these events lasted. He does note that he is on Methadone and that his last dose of Methadone was this past Monday. He reports that he was experiencing withdrawal symptoms yesterday evening and ingested 16 tabs of 800mg Gabapentin to alleviate his withdrawal symptoms. During this event he denies biting his tongue and denies any loss of bowel or bladder function. He does admit to some confusion and lethargy which may represent a post ictal phase. Otherwise, he denies any recent fevers, chills, ill contacts, stiff neck, tachycardia, palpitations, chest pain, shortness of breath, nausea, vomiting, or dysuria. Per review of his labs he does not appear to have any metabolic derangement which would cause seizure activity. His UDS is positive for methamphetamines and cocaine which could explain the seizures. He is afebrile and hemodynamically stable and has no leukocytosis. Neurology will follow in consultation. At this time I recommendations included obtaining an MRI of the brain to evaluate for organic causes of seizure and an EEG. Additionally, I agree with empiric Keppra. Past Med Surg Social Fam HX - Past Medical History Medical history: seizures, other Additional medical history: Hepatitis C Psychiatric history: anxiety - Past Surgical History Surgical History: no surgical history, other Additional surgical history: left hand surgery - Social History Smoking Status: Current every day smoker Smokeless Tobacco Status: No Alcohol use: occasionally Drug use: opiates, methamphetamine, IV Drug Use - Family History Mother Living Status: Still Living Hx Family Cardiac Disorders: No Hx Family Respiratory Disorders: No Hx Family Cancer: No Hx Family GI Disorders: No Hx Family Endocrine Disorder: No Hx Family Neuromuscular Disorders: No Hx Family Neurologic Disorders: No Hx Family HEENT Disorders: No Hx Family Autoimmune Disorders: No Father Living Status: Still Living Hx Family Cardiac Disorders: No Hx Family Respiratory Disorders: Yes (COPD) Hx Family Cancer: No Hx Family GI Disorders: No Hx Family Endocrine Disorder: No Hx Family Neuromuscular Disorders: No Hx Family Neurologic Disorders: No Hx Family HEENT Disorders: No Hx Family Autoimmune Disorders: No Medications and Allergies Gabapentin [Neurontin] 800 mg PO QID 11/23/17 [History] Methadone Oral Concentrate [Methadone] 110 mg PO DAILY 09/14/18 [History] levETIRAcetam [Roweepra] 500 mg PO BID #60 tablet 12/17/18 [Rx] Allergy/AdvReac Type Severity Reaction Status Date / Time ketorolac [From Toradol] Allergy Rash Verified 09/17/18 14:47 All Systems: The remainder of the systems were reviewed and are negative Review of Systems: REVIEW OF SYSTEMS GENERAL: Negative for any nausea, vomiting, fevers, chills, or weight loss, fatigue, exercise tolerance, legs feel heavy, slower to complete tasks, impaired mobility NEUROLOGIC: POSITIVE: convulsive acitvity, decreased level of consciousness, confusion,- - Negative for any visual changes, facial asymmetry, dysphagia, dysarthria, hemiparesis, hemisensory deficits, vertigo, ataxia, tongue biting, loss of bowel or bladder function, neck stiffness or pain. PSYCH: POSITIVE: agitation/irritability NEGATIVE: SI/HI HEENT: POSITIVE:Negative for any neck trauma, neck stiffness, photophobia, phonophobia, dysphagia, voice changes, sinusitis, rhinitis, tinnitus, decreased hearing, ear discharge or fullness,. CARDIAC: Negative for any chest pain, dyspnea on exertion MUSCULOSKELETAL: Joint pain, stiffness, loss of strength (bilateral/unilateral), arthritis (mono or poly) Joint swelling (mono or poly), muscle pain/swelling, limitations to motor activity or tolerance Physical Examination - Vital Signs Vital Signs: Initial Vital Signs Temp Pulse Resp BP Pulse Ox 99.2 F 104 15 134/70 99 12/17/18 08:09 12/17/18 08:09 12/17/18 08:09 12/17/18 08:09 12/17/18 08:09 - Exam Exam: Examination: General Examination: *GENERAL APPEARANCE OF PATIENT appears to have poor hygiene, and dentition. There are multiple burn frye on his fingertips *EYES: pupils equal, round, reactive to light and accommodation, conjunctiva clear without masses or ulcerations, fundi normal. *CARDIOVASCULAR RRR, S1, S2, no mumurs, rubs, or gallops, no peripheral edema, distal temperature normal, dorsalis pedis pulses normal. 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 No abnormal movements, fasciculations or atrophy identified. Neurological: *ORIENTATION to time, person, situation and place *RECURRENT AND REMOTE MEMORY intact *ATTENTION AND CONCENTRATION are normal *LANGUAGE FUNCTION no significant aphasia or dysarthia was noted. *FUND OF KNOWLEDGE aware of current events, past history, vocabulary *MENTAL attention span and concentration normal. *CN II optic fundi were normal, no papilledema noted. *CN III,IV, PERRLA extraocular eye movements were full, no nystagmus and no ptosis noted. *CN V shows normal sensation and jaw opens symmetrically. *CN VII shows normal facial movement symmetrically, upper and lower bilaterally. *CN VIII shows no significant hearing loss on examination in the office. *CN IX,,X palate elevated symmetrically and normal gag reflex was noted. *CN XI normal strength in the sternocleidomastoid muscles, symmetrical shoulder shrugging. *CN XII tongue protruded in the midline, with normal strength and movement. *SENSORY EXAMINATION light touch intact *REFLEXES: deep tendon reflexes were normal and symmetrical , grade 2/4 diffusely, no pathological reflexes were noted. *CEREBELLAR TESTING normal finger to nose - Constitutional General appearance: comfortable Results - Laboratory Findings CBC and BMP: 12/17/18 08:52 12/17/18 08:52 Abnormal lab findings: Abnormal lab results RBC 5.59 M/mcL (4.19-5.50) H 12/17/18 08:52 Neutrophils # 9.8 K/mcL (1.6-8.9) H 12/17/18 08:52 Glucose 120 mg/dL (70-105) H 12/17/18 08:52 Urine Clarity Cloudy (Clear) A 12/17/18 08:45 Urine Protein 100 mg/dL (Neg-Trace) H 12/17/18 08:45 Urine Microscopic WBC 30-50 per hpf (0-3) H 12/17/18 08:45 Ur Squamous Epith Cells Many per lpf (None-Few) H 12/17/18 08:45 Ur Amphetamines Screen Positive ng/mL ([id number]) H 12/17/18 08:45 Urine Cocaine Screen Positive ng/mL (Cutoff= 300) H 12/17/18 08:45
[2018-12-17] MEDS: *HR* Heparin 5,000 UNIT/ML VIAL SQ SCH ×2 (16:28→20:52)
[2018-12-17] MEDS: levETIRAcetam 250 MG TABLET PO SCH (16:28)
[2018-12-17] MEDS ORDERED: traMADol 50 MG TABLET PO PRN (18:37)
[2018-12-17] MEDS: *HR* LORazepam 2 MG/ML VIAL IVP PRN ×2 (19:55→23:04)
[2018-12-17] MEDS ORDERED: traMADol 50 MG TABLET PO ONE (21:50)
[2018-12-18] MEDS: levETIRAcetam 250 MG TABLET PO SCH (01:58)
[2018-12-18] MEDS: *HR* LORazepam 2 MG/ML VIAL IVP PRN ×2 (02:02→05:29)
[2018-12-18] MEDS ORDERED: traMADol 50 MG TABLET PO PRN (03:55)
[2018-12-18] MEDS: *HR* Heparin 5,000 UNIT/ML VIAL SQ SCH (03:58)
[2018-12-18 05:10] LABS: Hematocrit 40.6 % (37.5-50.1); Mean Corpuscular HGB Conc 33.3 g/dL (31.6-35.5); Mean Corpuscular Hemoglobin 27.7 pg (28.0-33.3); Mean Corpuscular Volume 83.4 fL (83.0-100.0); Mean Platelet Volume 10.1 fL (9.4-12.4); Platelet Count 264 K/mcL (140-400); Red Blood Count 4.87 M/mcL (4.19-5.50); Red Cell Distribution Width 12.7 % (11.5-14.5)
[2018-12-18 05:12] LABS: Hemoglobin 13.5 g/dL (12.9-16.9)
[2018-12-18 05:31] LABS: BUN/Creatinine Ratio 10 (6-26); Blood Urea Nitrogen 8 mg/dL (6-20); Calcium 9.5 mg/dL (8.6-10.3); Carbon Dioxide 24 mEq/L (23-29); Chloride 109 mEq/L (98-107); Glucose 117 mg/dL (70-105); Osmolality,Calculated 287 (280-300); Phosphorous 3.6 mg/dL (2.7-4.5); Potassium 3.6 mEq/L (3.5-5.1); Sodium 139 mEq/L (136-145); eGFR For Non-African Americans > 60 (> 60)
--- NOTE | 2018-12-18 07:56 | Electrocardiograph Report ---
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
[2018-12-18] MEDS ORDERED: Methadone Oral Concentrate 50 MG/5 ML UDC PO SCH ×2 (09:00)
--- NOTE | 2018-12-18 10:01 | Neurology Progress Note ---
Addendum entered and electronically signed by Idania Calloway MD 12/18/18 15:36: Patient seen and examined in the presence of Chris Carmichael and patient is feeling fine but requesting his usual dose of Methadone. He reports no recurrent seizures. He is on Keppra 500mg bid. He has not completed EEG yet since he has had an EEG and MRI of brain done less than one year ago we decided that he does not need repeat MRI of brain. EEG can be done as an outpatient if necessary. Will keep him on Keppra 500mg bid and follow up in neurology in 1-2 weeks. Patient is advised not to drive until 6 months free of seizure. Other seizure precautions discussed with the patient. Will sign off at this time please call if any questions Original Note: Date of Encounter: 12/18/18 Time of Encounter: 09:58 Assessment and Plan (1) Seizures Current Visit: Yes Status: Acute Presented with concern for seizures. Has a h/o seizure without known organic cause; most likely drug induced. It is unclear when he first began having seizures as the patient is a poor historian; first documented occurrence per my record review is 2017. He was found unresponsive with AMS and "convulsions" and his mother reports that he was having tonic/clonic seizures. However the patient denies tonic/clonic activity but admits to hitting his head on the floor repeatedly. There was no loss of bowel or bladder function and no tongue biting. He did admit to a mild post ictal state with confusion and lethargy; but per my assessment yesterday he did not appear to be post ictal. EEG in 09/06 did not reveal any epileptiform activity. MRI 09/06 with no acute intracranial abnormality. MRI and EEG ordered this admission and are pending completion This admission he has a positive UDS with amphetamines and cocaine which may have exacerbated his seizures Risk factors for seizures include abuse of methamphetamines and cocaine as well as possible drug withdrawal seizures. He does also admit to being in withdrawal from Methadone; he is on daily methadone and his last dose was Monday. He has not had any return of seizure activity since admission and had no new concerns. He has had no change in condition over night. Per my assessment he lethargic, but per my exam he does not have an focal or lateralizing deficits. Plan/Recommendations: MRI brain to assess for organic pathology of seizures EEG Agree with starting Keppra; will need Rx at d/c Ativan for breakthrough seizures Continue seizure precautions Strongly encouraged lifestyle changes including cessation of illicit drug use and medication compliance Subjective Principal diagnosis: Seizures Interval history: Seen and examined at the bedside today. He appears to be lethargic upon my assessment. Of note, he did just receive his methadone dose prior to my assessment. He denies any return of seizure activity since admission. With the exception of lethargy, he has had no acute change in condition over night and remains stable clinically. Objective - Constitutional Vitals: Temp Pulse Resp BP Pulse Ox 97.4 F L 75 19 115/70 98 12/18/18 08:02 12/18/18 08:02 12/18/18 08:02 12/18/18 08:02 12/18/18 08:02 Exam: Examination: General Examination: *CONSTITUTIONAL:lethargic *GENERAL APPEARANCE OF PATIENT appears healthy and well groomed *EYES: pupils equal, round, reactive to light and accommodation, conjunctiva clear without masses or ulcerations, fundi normal. *CARDIOVASCULAR RRR, S1, S2, no mumurs, rubs, or gallops, no peripheral edema, distal temperature normal, dorsalis pedis pulses normal. 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 No abnormal movements, fasciculations or atrophy identified. Neurological: *ORIENTATION to time, place, person and situation *RECURRENT AND REMOTE MEMORY intact; able to recall events leading up to admission *ATTENTION AND CONCENTRATION are altered d/t lethargy *LANGUAGE FUNCTION no significant aphasia or dysarthia was noted. *FUND OF KNOWLEDGE aware of current events, past history, vocabulary *MENTAL attention span and concentration as the patient is lethargic, however he is able to participate in examination *CN II optic fundi were normal, no papilledema noted. *CN III,IV, PERRLA extraocular eye movements were full, no nystagmus and no ptosis noted. *CN V shows normal sensation and jaw opens symmetrically. *CN VII shows normal facial movement symmetrically, upper and lower bilaterally. *CN VIII shows no significant hearing loss on examination in the office. *CN IX,,X palate elevated symmetrically and normal gag reflex was noted. *CN XI normal strength in the sternocleidomastoid muscles, symmetrical shoulder shrugging. *CN XII tongue protruded in the midline, with normal strength and movement. *SENSORY EXAMINATION light touch is intact *REFLEXES: deep tendon reflexes were normal and symmetrical , grade 2/4 diffusely, no pathological reflexes were noted. *CEREBELLAR TESTING normal finger to nose, *PAIN LEVEL 0 Results - Laboratory Findings CBC and BMP: 12/18/18 04:49 12/18/18 04:49 Abnormal lab findings: Abnormal lab results MCH 27.7 pg (28.0-33.3) L 12/18/18 04:49 Neutrophils # 9.8 K/mcL (1.6-8.9) H 12/17/18 08:52 Chloride 109 mEq/L (98-107) H 12/18/18 04:49 Glucose 117 mg/dL (70-105) H 12/18/18 04:49 POC Glucose 149 mg/dL (70-99) H 12/17/18 08:15 Urine Clarity Cloudy (Clear) A 12/17/18 08:45 Urine Protein 100 mg/dL (Neg-Trace) H 12/17/18 08:45 Urine Microscopic WBC 30-50 per hpf (0-3) H 12/17/18 08:45 Ur Squamous Epith Cells Many per lpf (None-Few) H 12/17/18 08:45 Ur Amphetamines Screen Positive ng/mL ([id number]) H 12/17/18 08:45 Urine Cocaine Screen Positive ng/mL (Cutoff= 300) H 12/17/18 08:45 Consult Discharge Plan - Plan
[2018-12-18 11:48] VITALS: BP 115/62
--- NOTE | 2018-12-18 12:03 | Discharge Summary ---
- NOTES TO OUTPATIENT PROVIDER Notes to Outpatient Provider: Follow up with PCP in one week. Follow up with Neurology in 1-2 weeks. No [address] please until your neurologist clears you. Since he missed his Methadone for 4 days we started him on 55mg Methadone here, which need to be increase gradually 10% every day. Orders not resulted at time of discharge: Pending orders 12/17/18 11:15 MR head/brain wo con [MR] Routine Date of Encounter: 12/18/18 Time of Encounter: 12:00 - Discharge Diagnosis (1) Seizure Priority: Primary Status: Acute (2) Opiate addiction Priority: Primary Status: Chronic Qualifiers: Substance use status: in withdrawal Qualified Code(s): F11.23 - Opioid dependence with withdrawal (3) DVT prophylaxis Priority: Secondary Status: Acute (4) Amphetamine abuse Priority: Secondary Status: Acute (5) Drug abuse and dependence Priority: Secondary Status: Chronic Hospital course: Mr. Morrell is a 28 year old male with a PMH of IVDU, Hepatitis C and suspected drug induced seizure on prior admissions and drug dependence who is on Methadone therapy now he presented to [facility] ER for seizures. Patient reports taking 15 Gabapentin pills this morning with an intent of getting high, and the last thing he remembered is his brother waking him up from the floor at home. He reports that he was out for about 10 minutes and after he recover consciousness as per EMS and ER note the patient had urinary incontinence. He was admitted here in August of 2018 for the same and at that time he had a negative EEG and MRI of Brain. His seizures were thought to be methamphetamine induced. Now pt reports that he is still actively doing drugs Cocaine and IV amphetamianes. His last use of IV methamphetamines was a little less than a week ago. Pt was admitted in the hospital and started him on Keppra. He does not have any more seizure activity. He was evaluated neurology and recommend to f.u with them as an out pt. He does not need another MRI of brain since he had a normal MRI in 09/06. His seizure activity is due to drug dependence / substance abuse, I did mitochondrial disorders counselor the pt quitting drugs. Also SW provided the information about rehab centers. Since he missed his Methadone for 4 days we started him on 55mg Methadone here, which need to be increase gradually 10% every day. - Time Spent with Patient Total time spent providing and/or coordinating discharge services: - Discharge Medications Home Medications: Gabapentin [Neurontin] 800 mg PO QID 11/23/17 [History] Methadone Oral Concentrate [Methadone] 110 mg PO DAILY 09/14/18 [History] levETIRAcetam [Roweepra] 500 mg PO BID #60 tablet 12/17/18 [Rx] Allergies/Adverse Reactions: Allergy/AdvReac Type Severity Reaction Status Date / Time ketorolac [From Toradol] Allergy Rash Verified 09/17/18 14:47 Date of admission: 12/17/18 11:55 Primary care physician: PCP NONE Consults: 12/17/18 11:17 Consult to Neurology [CONS] Routine Consulting Provider: [facility] Reason for Consult: seizures Call Completed: Yes - Constitutional Vitals: Temp Pulse Resp BP Pulse Ox 98.6 F 89 18 115/62 97 12/18/18 11:45 12/18/18 11:45 12/18/18 11:45 12/18/18 11:45 12/18/18 11:45 General appearance: Present: cooperative, A&O X 3, no acute distress, answers questions appropriately Exam: Gen: Alert, awake, Oriented to time,place and person Chest: Diminished breath sounds B/L, No wheezing, No crackles, No rales Heart: S1S2+ RRR No murmurs Abd: Soft, NT, BS +, No organomegaly Ext: No edema, pulses are palpable, No calf tenderness Neuro : Benign findings Skin: No rash. - Patient Status Disposition: Home, Self-Care Condition: Good Overall status at discharge: patient is back to baseline - Discharge Instructions Follow Up With: NONE,PCP [Primary Care Provider] - Idania Calloway MD [Partnered Physician] - Forms: ED Satisfaction Letter - Diet and Activity Activity: increase activity as tolerated Diet: low salt diet
== END 2018-12-18 16:14 | disposition home or self-care (01) ==
LOC: 3BNU 08:08 → EMEROOARM 08:08 → SUATTDRO 11:55 → 3BNU 13:28
PROVIDERS: ADMIT Internal Medicine; ATTEND Family Medicine

== ENCOUNTER 2020-11-11 13:53 | Observation (INO) ==
[2020-11-11 14:51] LABS: Basophils % 0.3 %; Eosinophils # 0.2 K/mcL (0.0-0.6); Eosinophils % 1.2 %; Hematocrit 48.4 % (37.5-50.1); Hemoglobin 15.9 g/dL (12.9-16.9); Immature Granulocytes % 0.4 % (0-4); Lymphocytes % 14.5 %; Mean Corpuscular HGB Conc 32.9 g/dL (31.6-35.5); Mean Corpuscular Hemoglobin 28.7 pg (28.0-33.3); Mean Corpuscular Volume 87.4 fL (83.0-100.0); Monocytes # 0.8 K/mcL (0.0-1.3); Monocytes % 5.9 %; Neutrophils # 10.7 K/mcL (1.6-8.9); Platelet Count 411 K/mcL (140-400); Red Blood Count 5.54 M/mcL (4.19-5.50); Red Cell Distribution Width 12.6 % (11.5-14.5); Segmented Neutrophils % 77.7 %; White Blood Count 13.8 K/mcL (4.3-11.1)
[2020-11-11 15:07] LABS: Acetaminophen < 10 mcg/mL (10-20); BUN/Creatinine Ratio 9 (6-26); Blood Urea Nitrogen 10 mg/dL (6-20); Calcium 10.4 mg/dL (8.6-10.3); Carbon Dioxide 28 mEq/L (23-29); Chloride 102 mEq/L (98-107); Chol/HDL Ratio 3.6 (0-4.9); Cholesterol 180 mg/dL (< 200); Ethanol < 10 mg/dL (Less than 10); Glucose 131 mg/dL (70-105); HDL Cholesterol 50 mg/dL (40-59); LDL Cholesterol,Calculated 103 mg/dL (< 100); Osmolality,Calculated 285 (280-300); Potassium 3.8 mEq/L (3.5-5.1); Salicylate < 2.5 mg/dL (15.0-30.0); Sodium 137 mEq/L (136-145); Triglycerides 134 mg/dL (< 150); eGFR For African Americans > 60 (> 60); eGFR For Non-African Americans > 60 (> 60)
[2020-11-11 15:09] LABS: Bacteria,Urine Few per hpf (None-Few); Bilirubin,Urine Negative (Negative); Blood,Urine Negative (Negative); Clarity,Urine Turbid (Clear); Color,Urine Yellow (Yellow); Glucose,Urine (UA) Normal (Normal); Hyaline Casts,Urine Many per lpf (None Seen); Ketones,Urine Negative (Negative); Leukocyte Esterase,Urine Trace (Negative); Mucus,Urine Few per lpf (None-Few); Nitrite,Urine Negative (Negative); PH,Urine 6.5 pH Units (5.0-8.0); Protein,Urine 70 mg/dL (Neg-Trace); RBC,Urine 0-3 per hpf (0-3); Specific Gravity,Urine 1.028 (1.010-1.025); Sperm,Urine Present (None Seen)
[2020-11-11 15:15] LABS: Amphetamine Screen,Urine Positive ng/mL (Cutoff=1000); Barbiturate Screen,Urine Negative ng/mL (Cutoff=200); Benzodiazepines Screen,Urine Negative ng/mL (Cutoff=200); Cannabinoid Screen,Urine Positive ng/mL (Cutoff = 50); Cocaine Screen,Urine Negative ng/mL (Cutoff= 300); Opiate Screen,Urine Negative ng/mL (Cutoff=300); Phencyclidine Screen,Urine Negative ng/mL (Cutoff=25)
[2020-11-11 15:38] LABS: Estimated Average Glucose 117 mg/dl; Hemoglobin A1C 5.7 %
[2020-11-11] MEDS ORDERED: *HR* LORazepam 2 MG/ML VIAL IM ONE (18:14)
[2020-11-11] MEDS ORDERED: Haloperidol Lactate 5 MG/ML VIAL IM ONE (18:14)
[2020-11-11 19:48] LABS: Adenovirus Not Detected (Not Detect); Bordetella Pertussis Not Detected (Not Detect); Chlamydophila pneumoniae Not Detected (Not Detect); Coronavirus 229E Not Detected (Not Detect); Coronavirus HKU1 Not Detected (Not Detect); Coronavirus NL63 Not Detected (Not Detect); Coronavirus OC43 Not Detected (Not Detect); Human Metapneumovirus Not Detected (Not Detect); Human Rhinovirus/Enterovirus Not Detected (Not Detect); Influenza A Subtype 2009 H1 Not Detected (Not Detect); Influenza B Not Detected (Not Detect); Mycoplasma pneumoniae Not Detected (Not Detect); Parainfluenza Virus 1 Not Detected (Not Detect); Parainfluenza Virus 2 Not Detected (Not Detect); Parainfluenza Virus 3 Not Detected (Not Detect); Parainfluenza Virus 4 Not Detected (Not Detect); Respiratory Syncytial Virus Not Detected (Not Detect); SARS-CoV-2 Not Detected (Not Detect)
[2020-11-11] MEDS ORDERED: Haloperidol Lactate 5 MG/ML VIAL IM PRN (20:11)
[2020-11-11] MEDS ORDERED: haloperidoL 5 MG TABLET PO PRN (20:11)
[2020-11-11] MEDS ORDERED: traZODone 50 MG TABLET PO PRN (20:11)
[2020-11-11] MEDS ORDERED: *HR* LORazepam 2 MG/ML VIAL IM PRN (20:11)
[2020-11-11] MEDS ORDERED: Mag Hydrox/Al Hydrox/Simeth 30 ML UDC PO PRN (20:11)
[2020-11-11] MEDS ORDERED: *HR* LORazepam 1 MG TABLET PO PRN (20:11)
[2020-11-11] MEDS ORDERED: Acetaminophen 325 MG TABLET PO PRN (20:11)
[2020-11-11] MEDS ORDERED: hydrOXYzine pamoate 25 MG CAPSULE PO PRN (20:11)
[2020-11-11] MEDS ORDERED: MOM Conc 10 ML UD.LIQ PO PRN (20:11)
[2020-11-12 09:35] VITALS: BP 107/71
== END 2020-11-12 11:10 | disposition home or self-care (01) ==
LOC: EMEROOARM 13:53 → INTOOBSV 20:04 → 1ANU 20:04
PROVIDERS: ADMIT Psychiatry & Neurology Psychiatry; ATTEND Psychiatry & Neurology Psychiatry

== ENCOUNTER 2022-06-29 15:44 | Inpatient (IN) ==
[2022-06-29] MEDS ORDERED: Haloperidol Lactate 5 MG/ML VIAL IVP PRN (16:39)
[2022-06-29] MEDS: *HR* HYDROmorphone 2 MG/ML SYRINGE IVP SCH (21:02)
[2022-06-29] MEDS: diazePAM 10 MG/2 ML SYRINGE IVP SCH (21:03)
[2022-06-29] MEDS: levETIRAcetam 500 MG/5 ML UDC GTUBE SCH (22:12)
[2022-06-29] MEDS: *HR* Metoprolol 5 MG/5 ML VIAL IVP SCH (22:40)
[2022-06-30] MEDS: *HR* HYDROmorphone 2 MG/ML SYRINGE IVP SCH ×3 (00:21→08:13)
[2022-06-30] MEDS: diazePAM 10 MG/2 ML SYRINGE IVP SCH ×2 (03:15→09:13)
[2022-06-30] MEDS: *HR* Metoprolol 5 MG/5 ML VIAL IVP SCH ×3 (03:17→10:42)
[2022-06-30] MEDS: levETIRAcetam 500 MG/5 ML UDC GTUBE SCH ×2 (09:13→20:25)
[2022-06-30] MEDS ORDERED: *HR* OxyCODONE Oral Soln 5 MG/5 ML UD.LIQ PO SCH (12:00)
[2022-06-30] MEDS: *HR* OxyCODONE Oral Soln 5 MG/5 ML UD.LIQ GTUBE SCH ×3 (13:03→23:57)
[2022-06-30] MEDS: *HR* HYDROmorphone 2 MG/ML SYRINGE IVP PRN (17:41)
[2022-06-30] MEDS: diazePAM 5 MG TABLET PO SCH (20:25)
[2022-06-30] MEDS ORDERED: diazePAM 5 MG TABLET PO SCH (21:00)
[2022-07-01] MEDS: *HR* HYDROmorphone 2 MG/ML SYRINGE IVP PRN ×3 (00:13→15:05)
[2022-07-01] MEDS: *HR* OxyCODONE Oral Soln 5 MG/5 ML UD.LIQ GTUBE SCH ×4 (06:23→23:33)
[2022-07-01] MEDS: levETIRAcetam 500 MG/5 ML UDC GTUBE SCH ×2 (08:13→21:58)
[2022-07-01] MEDS: diazePAM 5 MG TABLET PO SCH ×2 (08:13→21:58)
[2022-07-01 19:39] VITALS: TEMP 98.2; O2SAT 95
[2022-07-02] MEDS: *HR* HYDROmorphone 2 MG/ML SYRINGE IVP PRN ×4 (02:00→11:30)
[2022-07-02] MEDS: *HR* OxyCODONE Oral Soln 5 MG/5 ML UD.LIQ GTUBE SCH ×2 (05:49→11:31)
[2022-07-02 07:47] VITALS: BP 82/49; PULSE 141
[2022-07-02] MEDS: diazePAM 5 MG TABLET PO SCH (09:04)
[2022-07-02] MEDS: levETIRAcetam 500 MG/5 ML UDC GTUBE SCH (09:04)
[2022-07-02] MEDS ORDERED: *HR* OxyCODONE Oral Soln 5 MG/5 ML UD.LIQ PO PRN (12:07)
[2022-07-02] MEDS ORDERED: *HR* HYDROmorphone 2 MG/ML SYRINGE IVP PRN (12:09)
[2022-07-02] MEDS ORDERED: Haloperidol Oral Conc 10 MG/5 ML UDC GTUBE PRN (12:10)
[2022-07-02] MEDS ORDERED: *HR* OxyCODONE Oral Soln 5 MG/5 ML UD.LIQ GTUBE SCH (12:15)
== END 2022-07-02 16:11 | disposition expired | DRG 951 ==
LOC: 2ANU 19:30
PROVIDERS: ADMIT Internal Medicine Hospice and Palliative Medicine; ATTEND Internal Medicine Hospice and Palliative Medicine